=== PATIENT | male | born 1975 | race Caucasian/White ===

== ENCOUNTER 2017-01-17 16:25 | Inpatient (IN) | payer MEDICAID ==
[2017-01-17] MEDS ORDERED: MORPHINE SULFATE 10 MG/ML INJ IV ONE ×2 (16:43→19:31)
[2017-01-17] MEDS ORDERED: ONDANSETRON HCL INJ/PF 4 MG/2 ML SDV IV ONE (16:44)
--- NOTE | 2017-01-17 16:48 | ER Document Report ---
ED General - General Chief Complaint: Abdominal Pain Stated Complaint: ABDOMINAL PAIN Time Seen by Provider: 01/17/17 16:32 Mode of Arrival: Medic Information source: Patient, [facility] Records Notes: This is a 41-year-old male with a history of AK and chronic O2 dependent (5 L nasal cannula) who presents for evaluation of abdominal pain. He is wheelchair dependent at home. Patient states that he has had right-sided abdominal pain which has been worsening for the past 4 days. His pain is specifically located in the right lower quadrant. He denies any flank or back pain. He has had no nausea or vomiting. His last oral intake was about 1230 today and was a tomato sandwich which he tolerated with no difficulty. His last bowel movement was about 2 hours ago and was normal per his report. He denies any fevers or chills. He denies any dysuria or hematuria. This pain has been going on for 4 days but became severe earlier today. TRAVEL OUTSIDE OF THE [place] IN LAST 30 DAYS: No - Related Data Allergies/Adverse Reactions: No Known Allergies Allergy (Verified 01/19/15 16:03) Past Medical History - General Information source: Patient - Social History Smoking Status: Current Every Day Smoker Frequency of alcohol use: None Drug Abuse: None Lives with: Family Family History: CAD - Past Medical History Cardiac Medical History: Reports: Hx Heart Attack - x 2 Pulmonary Medical History: Reports: Hx Sleep Apnea Other: "lung problem" requiring O2 5L NC but patient unable to be more specific Past Surgical History: Reports: Hx Cardiac Surgery - stent, Hx Cholecystectomy, Hx Coronary Stent - Immunizations Hx Diphtheria, Pertussis, Tetanus Vaccination: No Review of Systems - Review of Systems Constitutional: No symptoms reported. denies: Chills, Fever, Recent illness EENT: No symptoms reported Cardiovascular: No symptoms reported. denies: Chest pain, Palpitations Respiratory: No symptoms reported Gastrointestinal: See HPI Genitourinary: No symptoms reported, See HPI. denies: Dysuria, Hematuria Musculoskeletal: No symptoms reported Skin: No symptoms reported Hematologic/Lymphatic: No symptoms reported Neurological/Psychological: No symptoms reported Physical Exam - Vital signs Vitals: Temp Pulse Resp BP Pulse Ox 98.5 F 85 28 H 111/79 96 01/17/17 16:33 01/17/17 16:33 01/17/17 16:33 01/17/17 16:33 01/17/17 16:33 - Notes Notes: PHYSICAL EXAMINATION: GENERAL: Well-appearing, obese adult male, pleasant and conversant and in mild distress secondary to abdominal pain. HEAD: Atraumatic, normocephalic. EYES: Pupils equal round and reactive to light, extraocular movements intact, sclera anicteric, conjunctiva are normal. ENT: nares patent, oropharynx clear without exudates. Moist mucous membranes. NECK: Normal range of motion, supple without lymphadenopathy LUNGS: Breath sounds clear to auscultation bilaterally and equal. No wheezes rales or rhonchi. HEART: Regular rate and rhythm without murmurs ABDOMEN: Soft, morbidly obese, normoactive bowel sounds. Significant TTP R side of abdomen (RLQ and RUQ) and suprapubic area with rebound tenderness, mild vol guarding. : No scrotal swelling/discoloration. No testicular TTP or masses. No hernia palpated. EXTREMITIES: Normal range of motion NEUROLOGICAL: Cranial nerves grossly intact. Normal speech. No gross focal motor or sensory deficits appreciated PSYCH: Normal mood, normal affect. SKIN: Warm, Dry, normal turgor, no rashes or lesions noted. Course - Re-evaluation Re-evalutation: 01/17/17 21:29 CT reveals evidence of appendicitis. Discussed case with surgeon, Dr. Zhou , who will admit patient to OR - Vital Signs Vital signs: Temp Pulse Resp BP Pulse Ox 98.5 F 85 28 H 111/79 96 01/17/17 16:33 01/17/17 16:33 01/17/17 16:33 01/17/17 16:33 01/17/17 16:33 - Laboratory Result Diagrams: 01/17/17 17:45 01/17/17 20:07 Laboratory results interpreted by me: 01/17/17 01/17/17 01/17/17 17:30 17:45 20:07 WBC 11.8 H RDW 15.6 H Glucose 279 H Direct Bilirubin 0.6 H AST 66 H Alkaline Phosphatase 160 H Urine Protein 100 H Urine Glucose (UA) >=500 H Urine Blood SMALL H - Diagnostic Test Radiology reviewed: Reports reviewed - CT abd pelvis: dilated fluid filled appendix with signs of inflammation concerning for appendicitis Discharge - Discharge Condition: Fair Disposition: ADMITTED INPATIENT Admitting Provider: Surgicalist - Dr. Zhou Unit Admitted: Surgical Floor
[2017-01-17 18:19] LABS: ABSOLUTE BASOPHILS # (AUTO) 0.1 10^3/uL (0.0-0.2); ABSOLUTE EOSINOPHILS # (AUTO) 0.1 10^3/uL (0.0-0.6); ABSOLUTE LYMPHOCYTES (AUTO) 4.2 10^3/uL (0.5-4.7); ABSOLUTE MONOCYTES (AUTO) 0.6 10^3/uL (0.1-1.4); ABSOLUTE NEUT (AUTO) 6.7 10^3/uL (1.7-8.2); BASOPHILS % (AUTO) 0.7 % (0-2); EOSINOPHILS % (AUTO) 1.2 % (0-6); HEMATOCRIT 46.6 % (37.9-51.0); HEMOGLOBIN 15.1 g/dL (13.5-17.0); HGB HCT DIFFERENCE -1.3; MEAN CORPUSCULAR HEMOGLOBIN 29.2 pg (27.0-33.4); MEAN CORPUSCULAR HGB CONC 32.4 g/dL (32.0-36.0); MEAN CORPUSCULAR VOLUME 90 fl (80-97); MONOCYTES % (AUTO) 5.1 % (3-13); RED BLOOD COUNT 5.16 10^6/uL (4.35-5.55); RED CELL DISTRIBUTION WIDTH 15.6 % (11.5-14.0); WHITE BLOOD COUNT 11.8 10^3/uL (4.0-10.5)
[2017-01-17 18:26] LABS: APPEARANCE,URINE CLEAR; BILIRUBIN,URINE NEGATIVE (NEGATIVE); GLUCOSE, URINE >=500 mg/dL (NEGATIVE); KETONES,URINE NEGATIVE (NEGATIVE); LEUKOCYTE ESTERASE,URINE NEGATIVE (NEGATIVE); NITRITE,URINE NEGATIVE (NEGATIVE); PROTEIN,URINE 100 mg/dL (NEGATIVE); URINE SPECIFIC GRAVITY 1.036; UROBILINOGEN,URINE NEGATIVE mg/dL (<2.0)
[2017-01-17 20:27] LABS: ALANINE AMINOTRANSFERASE 38 U/L (21-72); ALBUMIN 3.5 g/dL (3.5-5.0); ALKALINE PHOSPHATASE 160 U/L (38-126); ANION GAP 9 (5-19); ASPARTATE AMINO TRANSFERASE 66 U/L (17-59); BILIRUBIN,DIRECT 0.6 mg/dL (0.0-0.4); BILIRUBIN,TOTAL 1.2 mg/dL (0.2-1.3); BLOOD UREA NITROGEN 14 mg/dL (7-20); CALCIUM 8.9 mg/dL (8.4-10.2); CARBON DIOXIDE 24 mmol/L (22-30); CHLORIDE 105 mmol/L (98-107); GLUCOSE 279 mg/dL (75-110); LIPASE 72.2 U/L (23-300); POTASSIUM 4.5 mmol/L (3.6-5.0); SODIUM 137.7 mmol/L (137-145); TOTAL PROTEIN 7.2 g/dL (6.3-8.2)
[2017-01-17] MEDS ORDERED: HYDROMORPHONE HCL INJ/PF 2 MG/ML AMPULE IV ONE (20:39)
[2017-01-17] MEDS ORDERED: CEFOXITIN 1 GM/D5W RTU 50 ML IV ONE (20:48)
--- NOTE | 2017-01-17 21:18 | RADIOLOGY REPORT (SQ) ---
EXAM DESCRIPTION: CT ABD/PELVIS NO ORAL OR IV COMPLETED DATE/TIME: 01/17/2017 8:42 pm REASON FOR STUDY: right abdominal pain COMPARISON: January 2015 TECHNIQUE: CT scan of the abdomen and pelvis performed without intravenous or oral contrast. Images reviewed with lung, soft tissue, and bone windows. Reconstructed coronal and sagittal MPR images revi ewed. All images stored on PACS. All CT scanners at this facility use dose modulation, iterative reconstruction, and/or weight based d osing when appropriate to reduce radiation dose to as low as reasonably achievable (ALARA). [facility]: Dose Right [facility]: CareDose [facility]: Dose Right [facility]: Teradose 4D [facility]: [employer] RADIATION DOSE: 19.42mGy. LIMITATIONS: Study is limited due to the patient's body habitus. FINDINGS: LOWER CHEST: No significant findings. No nodules or infiltrates. NON-CONTRASTED LIVER, SPLEEN, ADRENALS: Evaluation limited by lack of IV contrast. No identified sign ificant masses. There is diffuse relative low density in the liver suggesting fatty infiltration. PANCREAS: No masses. No peripancreatic inflammatory changes. GALLBLADDER: Status post cholecystectomy. RIGHT KIDNEY AND URETER: No suspicious masses. Assessment limited by lack of IV contrast. No signif icant calcifications. No hydronephrosis or hydroureter. LEFT KIDNEY AND URETER: No suspicious masses. Assessment limited by lack of IV contrast. No signifi cant calcifications. No hydronephrosis or hydroureter. AORTA AND RETROPERITONEUM: No aneurysm. No retroperitoneal masses or adenopathy. BOWEL AND PERITONEAL CAVITY: No obvious masses or inflammatory changes. No free fluid. APPENDIX: A fluid distended by appendix is identified with edematous or inflammatory changes in the a djacent mesenteric fat suspicious for appendicitis. PELVIS, BLADDER, AND ABDOMINAL WALL:No abnormal masses. No free fluid. Bladder normal. BONES: No significant findings. OTHER: No other significant finding. IMPRESSION: Findings suspicious for appendicitis as noted above. Clinical correlation is recommende d. Other findings as noted above TECHNICAL DOCUMENTATION: JOB ID: [id number] Quality ID # [id number]: Final reports with documentation of one or more dose reduction techniques (e.g., Au tomated exposure control, adjustment of the mA and/or kV according to patient size, use of iterative reconstruction technique) 2010 [employer]- All Rights Reserved
[2017-01-17] MEDS ORDERED: NORMAL SALINE 1000 ML 1,000 ML IV ONE (21:29)
[2017-01-17] MEDS ORDERED: ERTAPENEM SODIUM INJ 1 GM VIAL IV ONE (21:47)
--- NOTE | 2017-01-17 22:16 | PDOC H&P ---
History of Present Illness Admission Date/PCP: 01/17/17 21:57 Patient complains of: Abdominal pain 6 days History of Present Illness: JC ORANTES is a 41 year old male who was brought to [facility] emergency department via ground rescue complaining 6 day history of abdominal pain. This started the right lower quadrant, and the patient felt he had gas. The pain persisted unrelenting over the next several days. He thought he had to have a bowel movement so he took Ex-Lax with no improvement in his pain. He continued to eat and have bowel movements as recently as this evening. His last meal was 1230, sandwich. Patient has had no nausea vomiting , history of trauma, or previous symptoms. Patient was put on over 120 pounds in the last 3 years. He is medically disabled due to his weight, and cardio inspiratory dysfunction. Patient was evaluated in the emergency department found to have right lower quadrant tenderness and leukocytosis. CT scan of the abdomen and pelvis was performed without IV and oral contrast which showed findings consistent with acute appendicitis. Surgery was consulted the patient was advised admission, and definitive surgical intervention. Past Medical History Cardiac Medical History: Reports: Myocardial Infarction - x 2 Pulmonary Medical History: Reports: Sleep Apnea Renal/ History Note: Acute renal failure, recovered; history of lower extremity edema GI History Note: With obesity; history of laparoscopic cholecystectomy 3 years ago Past Surgical History Past Surgical History: Reports: Cholecystectomy, Coronary Stent - 20 years ago. History of myocardial infarction. Social History Lives with: Family Smoking Status: Current Every Day Smoker Hx Recreational Drug Use: No Past Social History Note: Used to smoke 60 cigarettes a day now cut down to 3 a day by his report. He is on home oxygen and CPAP. He ambulates from bed to chair. He has a wheelchair. He has chronic shortness of breath, and pain in his legs. He reports noncompliance with medications but is taking narcotics for musculoskeletal pain. - Advance Directive Resuscitation Status: Full Code Family History Family History: CAD Parental Family History Reviewed: Yes Children Family History Reviewed: Yes Sibling(s) Family History Reviewed.: Yes Medication/Allergy Home Medications: Cyclobenzaprine HCl [Flexeril 10 mg Tablet] 10 mg PO TIDP PRN #15 tab 15 Oxycodone HCl/Acetaminophen [Percocet 5-325 mg Tablet] 1 - 2 tab PO ASDIR PRN # 15 tablet 05/30/15 Sulfamethoxazole/Trimethoprim [Bactrim Ds Tablet] 1 each PO BID #10 tablet 01/19 Allergies/Adverse Reactions: No Known Allergies Allergy (Verified 01/19/15 16:03) Review of Systems Constitutional: PRESENT: fatigue, weakness Eyes: ABSENT: visual disturbances Ears: ABSENT: hearing changes Respiratory: PRESENT: dyspnea, other - Chronic shortness of breath. Psychiatric: ABSENT: anxiety, depression, homidical ideation, suicidal ideation Endocrine: PRESENT: other - States he has never been told he has diabetes. Physical Exam Vital Signs: Temp Pulse Resp BP Pulse Ox 98.5 F 85 28 H 111/79 96 01/17/17 16:33 01/17/17 16:33 01/17/17 16:33 01/17/17 16:33 01/17/17 16:33 General appearance: PRESENT: disheveled, mild distress Head exam: PRESENT: normocephalic Eye exam: PRESENT: EOMI Ear exam: PRESENT: normal external ear exam Teeth exam: PRESENT: poor dentation Neck exam: PRESENT: full ROM Respiratory exam: PRESENT: rhonchi Cardiovascular exam: PRESENT: RRR Pulses: PRESENT: normal carotid pulses GI/Abdominal exam: PRESENT: other - Distended. Scars consistent with previous surgery. Tender right lower quadrant with guarding. Abdominal wall Rectal exam: PRESENT: deferred Extremities exam: PRESENT: +2 edema Musculoskeletal exam: PRESENT: full ROM Neurological exam: PRESENT: alert, awake, oriented to person, oriented to place Psychiatric exam: PRESENT: agitated Results Impressions: Abdomen/Pelvis CT 01/17/17 19:56 IMPRESSION: Findings suspicious for appendicitis as noted above. Clinical correlation is recommended. Other findings as noted above Status: Image reviewed by dc - CT scan limited by absence of IV and oral contrast. Also significant scatter artifact. There appears to be a inflammatory process in the right mid to lower quadrant adjacent to the cecum. Assessment & Plan - Diagnosis (1) Appendicitis, acute Is this a current diagnosis for this admission?: YesPlan: 1. Patient needs admission to the surgical service, kept n.p.o., fluid resuscitated, given intravenous antibiotics and taken to the operating room for interval laparoscopic, possible open appendectomy. 2. Patient's risk of cardio respiratory complications postoperatively is significant. However patient is in need of emergent surgical intervention, and understands it is in his best interest to proceed. He may require postoperative ventilatory support. 3.Patient unaware of diagnosis of diabetes mellitus. We will fluid resuscitate and provide insulin as indicated. (2) Smoker in home Is this a current diagnosis for this admission?: Yes (3) Morbid obesity Is this a current diagnosis for this admission?: Yes (4) COPD (chronic obstructive pulmonary disease) Is this a current diagnosis for this admission?: Yes (5) CAD (coronary artery disease) Is this a current diagnosis for this admission?: Yes (6) Diabetes Qualifiers: Diabetes mellitus type: type 2 Diabetes mellitus complication status: with hyperglycemia Is this a current diagnosis for this admission?: Yes - Time Time Spent: 50 to 70 Minutes Critical Time spent with patient: 15-24 minutes Medications reviewed and adjusted accordingly: Yes Anticipated discharge: Home - Inpatient Certification Based on my medical assessment, after consideration of the patient's comorbidities, presenting symptoms, or acuity I expect that the services needed warrant INPATIENT care.: Yes I certify that my determination is in accordance with my understanding of Medicare's requirements for reasonable and necessary INPATIENT services [42 CFR 412.3e].: Yes Medical Necessity: Need For IV Fluids, Need for Pain Control, Need for IV Antibiotics, Need for Surgery
[2017-01-17] MEDS ORDERED: FENTANYL CITRATE INJ/PF 100 MCG/2 ML AMPUL ONE ×2 (22:27)
[2017-01-17] MEDS ORDERED: PROPOFOL INJ 200 MG/20 ML VIAL IV ONE ×2 (22:27→23:43)
[2017-01-17] MEDS ORDERED: ACETAMINOPHEN 100 ML IV ONE (22:27)
[2017-01-17] MEDS ORDERED: MIDAZOLAM 2 MG/2 ML INJ ONE (22:27)
[2017-01-17] MEDS ORDERED: LIDOCAINE 1%/EPINEPHRINE INJ 20 ML VIAL ONE (22:51)
[2017-01-17] MEDS ORDERED: LIDOCAINE 1%/EPINEPHRINE INJ 20 ML VIAL INJ ONE (23:36)
[2017-01-17] MEDS ORDERED: PROMETHAZINE HCL INJ 25 MG/1 ML VIAL IV PRN (23:43)
[2017-01-17] MEDS ORDERED: DIPHENHYDRAMINE HCL 50 MG/ML VIAL IV PRN (23:43)
[2017-01-17] MEDS ORDERED: FENTANYL CITRATE INJ/PF 100 MCG/2 ML AMPUL IV PRN ×2 (23:43)
[2017-01-18] MEDS ORDERED: ONDANSETRON HCL INJ/PF 4 MG/2 ML SDV IV PRN (00:16)
--- NOTE | 2017-01-18 00:27 | Operative Report ---
Operative Report DATE OF SURGERY: 01/18/17 PREOPERATIVE DIAGNOSIS: Acute appendicitis POSTOPERATIVE DIAGNOSIS: Same with separative appendicitis with phlegmon OPERATION: 1. Laparoscopic appendectomy. 2. Drainage of right lower quadrant. 3. Extremely difficult modifier SURGEON: MARILYN ALLEN ANESTHESIA: GA TISSUE REMOVED OR ALTERED: Appendix and fragments COMPLICATIONS: None ESTIMATED BLOOD LOSS: 50 cc INTRAOPERATIVE FINDINGS: See below PROCEDURE: Patient was seen initially in the emergency department, then transferred to the holding area and taken to the main operating room where general anesthesia was induced uneventfully. The abdomen was exposed, Randhawa catheter inserted uneventfully, and the abdomen prepped and draped in sterile fashion. Of note the patient was morbidly obese, with chronic obstructive lung disease. Nonetheless all events during induction throughout the case and at its conclusion proceeded uneventfully. Surgical plan surgical timeout conducted. Skin was anesthetized with quarter percent Marcaine. Supraumbilical vertical incision made benign Veress needle inserted in peritoneal cavity and pneumoperitoneum was established. The Veress needle was removed and a 5 mm port was inserted and flexible 5 mm scope was inserted. We level the patient placed a suprapubic port in position and then placed a left lower quadrant 12 mm port at the position, all performed under direct visualization without injury to the viscera. Findings are significant for multiple loops of small bowel adhesions down to the right lower quadrant. We are able to milk most of the bowel out of the right lower quadrant. The terminal ileum was affixed to the phlegmon. We placed a fourth port in the right lower quadrant and use that for retraction. Using a combination of blunt, and suction dissection, we were able to bluntly dissected the ileum off of the appendix. Once we broke into this plane, approximately 10 cc of pus was expressed. The findings are consistent with acute suppurative appendicitis with phlegmon, but no gross fecal contamination. We kept working from multiple angles bluntly dissecting the surrounding loop of bowel terminal ileum away from the appendix. Small portion of the cecal attachment to the inferior peritoneal reflection was opened with the LigaSure device. We continue to work in a methodical fashion until we had the appendix in a chopped up almost fragmented fashion suspended from the cecum. Multiple photos were taken. We continue to take the level of dissection right down to the shoulder of the appendix as it was tapering into the musculature of the cecum. Again photos were taken. At this point we felt it was safe to transect the appendix at its base. We used a a single firing, blue load, of the Ethicon stapler 45 mm. The appendix was now in a fragmented form and placed into an Endobag and brought to the patient through the left lower quadrant port site incision with some stretching of the fascia and skin. We irrigated the right lower quadrant out in a localized fashion. A abbreviated , trimmed Al[place]-Rockwell drain was placed into the right lower quadrant through 1 of the port site incisions. He was secured to the skin with 2-0 Prolene suture. The staple line was inspected and it was felt to be in excellent condition. There was never any leakage of stool. We felt the operation was complete. Sponge counts were correct. All ports removed under direct visualization pneumoperitoneum evacuated was closed with 2-0 Vicryl 3-0 Vicryl benzoin and Steri-Strips. The drain was hooked to bulb suction. The patient tolerated the procedure well, extubated taken to recovery in stable condition felt to be unchanged ulcer
[2017-01-18] MEDS ORDERED: DEXTROSE 40% GEL 15 GM TUBE PO PRN ×3 (00:37→10:55)
[2017-01-18] MEDS ORDERED: GLUCAGON,HUMAN RECOMB 1 MG INJ IM PRN ×2 (00:37→10:55)
[2017-01-18] MEDS ORDERED: DEXTROSE 50%-WATER 25 GM/50 ML DISP.SYRIN IV PRN ×2 (00:37)
[2017-01-18] MEDS ORDERED: KETOROLAC TROMETHAMINE 60 MG/2 ML SDV IM PRN (00:40)
[2017-01-18] MEDS: MORPHINE SULFATE 10 MG/ML INJ IV PRN ×6 (01:12→22:25)
[2017-01-18] MEDS ORDERED: KETOROLAC TROMETHAMINE INJ/PF 30 MG/1 ML SDV ONE (03:58)
[2017-01-18] MEDS: NORMAL SALINE 1000 ML 1,000 ML IV PRN ×3 (05:18→21:41)
[2017-01-18] MEDS: INSULIN REG, HUMAN 100 UNIT/ML 3 ML VIAL (PYX) SUBCUT PRN ×2 (06:37→08:33)
[2017-01-18] MEDS: CEFOXITIN 1 GM/D5W RTU 1 GM/50 ML RTUPB IV SCH ×2 (09:07→21:41)
[2017-01-18] MEDS ORDERED: DEXTROSE 50%-WATER SYRINGE 12.5 GM/25 ML DOSE IV PRN (10:55)
[2017-01-18] MEDS ORDERED: DEXTROSE 50%-WATER SYRINGE 25 GM/50 ML DOSE IV PRN (10:55)
[2017-01-18] MEDS ORDERED: DEXTROSE 40% GEL 15 GM TUBE X 2 PO PRN (10:55)
[2017-01-18] MEDS: KETOROLAC TROMETHAMINE INJ/PF 30 MG/1 ML SDV IM PRN ×2 (10:59→19:43)
[2017-01-18] MEDS: INSULIN LISPRO 100 UNIT/ML 3 ML VIAL SUBCUT PRN ×4 (11:11→21:41)
[2017-01-18] MEDS ORDERED: SUCCINYLCHOLINE CHLORIDE INJ 200 MG/10 ML VIAL ONE (12:01)
[2017-01-18] MEDS ORDERED: GLYCOPYRROLATE INJ 0.4 MG/2 ML VIAL ONE (12:01)
[2017-01-18] MEDS ORDERED: ONDANSETRON HCL INJ/PF 4 MG/2 ML SDV ONE (12:01)
[2017-01-18] MEDS ORDERED: NEOSTIGMINE METHYLSULFATE 10 MG/10 ML VIAL ONE (12:01)
[2017-01-18] MEDS ORDERED: ROCURONIUM BROMIDE INJ 50 MG/5 ML VIAL IV ONE (12:01)
[2017-01-18] MEDS ORDERED: DEXAMETHASONE SOD PHOSPHATE INJ 4 MG/1 ML VIAL ONE (12:01)
[2017-01-18] MEDS ORDERED: LIDOCAINE 2% INJ-PF (20 MG/ML) 10 ML AMPUL ONE (12:01)
[2017-01-18] MEDS ORDERED: KETOROLAC TROMETHAMINE 60 MG/2 ML SDV ONE (12:01)
[2017-01-18] MEDS ORDERED: INSULIN LISPRO 100 UNIT/ML 3 ML VIAL SUBCUT ONE (12:30)
--- NOTE | 2017-01-18 13:25 | PDOC CONSULTATION ---
Consultation Consult Date: 01/18/17 Attending physician:: MARILYN ALLEN Consult reason:: Newly diagnosed diabetes, post op emergent appendectomy History of Present Illness Admission Date/PCP: 01/18/17 01:00 History of Present Illness: JC ORANTES is a 41 year old male who [facility] complaining 6 day history of abdominal pain. This started the right lower quadrant, and the patient felt he had gas. The pain persisted unrelenting over the next several days. He thought he had to have a bowel movement so he took Ex-Lax with no improvement in his pain. He continued to eat and have bowel movements as recently as this evening. His last meal was 1230, sandwich. Patient has had no nausea vomiting , history of trauma, or previous symptoms. Patient was put on over 120 pounds in the last 3 years. He is medically disabled due to his weight, and cardio pulmonary dysfunction. He reports AR with stent. He states he was told at [facility] this year that he has trouble with the blood vessels to his lung, and " there is nothing left that they can do for him " He wears CPAP at night and a good part of the day, or nasal cannula at 4l/min Patient was evaluated in the emergency department found to have right lower quadrant tenderness and leukocytosis. CT scan of the abdomen and pelvis was performed without IV and oral contrast which showed findings consistent with acute appendicitis. Surgery was consulted the patient was advised admission, and definitive surgical intervention. The patient has had high glucose readings since admission. He denies any history of diabetes, he was told by his family physician he was " borderline diabetic " 2 years ago. He states his parents young and he has no knowledge of any family members having diabetes. He denies polydypsia, or polyurea. Past Medical History Cardiac Medical History: Reports: Myocardial Infarction - x 2 Pulmonary Medical History: Reports: Chronic Obstructive Pulmonary Disease (COPD) , Sleep Apnea, Other - Pulmonary hypertension Neurological Medical History: Reports: None Endocrine Medical History: Reports: Obesity Renal/ Medical History: Reports: None Malignancy Medical History: Reports: None GI Medical History: Reports: None Musculoskeltal Medical History: Reports: None Skin Medical History: Reports: None Psychiatric Medical History: Reports: None Hematology: Reports: None Infectious Medical History: Reports: None Past Surgical History Past Surgical History: Reports: Cholecystectomy, Coronary Stent - 20 years ago. History of myocardial infarction. Social History Information Source: Patient Lives with: Family Smoking Status: Former Smoker Number of Years Smokin Frequency of Alcohol Use: None Hx Recreational Drug Use: No Drugs: None Hx Prescription Drug Abuse: No - Advance Directive Resuscitation Status: Full Code Surrogate healthcare decision maker:: should he become incapacitated Family History Family History: CAD Parental Family History Reviewed: Yes Children Family History Reviewed: Yes Sibling(s) Family History Reviewed.: Yes Medication/Allergy Home Medications: No Home Medications 01/18/17 Allergies/Adverse Reactions: No Known Allergies Allergy (Verified 01/19/15 16:03) Review of Systems Constitutional: PRESENT: weight gain Eyes: ABSENT: visual disturbances Ears: ABSENT: hearing changes Cardiovascular: PRESENT: dyspnea on exertion Respiratory: PRESENT: dyspnea Gastrointestinal: PRESENT: abdominal pain Genitourinary: ABSENT: dysuria, hematuria Musculoskeletal: ABSENT: joint swelling Integumentary: ABSENT: rash, wounds Neurological: ABSENT: abnormal gait, abnormal speech, confusion, dizziness, focal weakness, syncope Psychiatric: ABSENT: anxiety, depression, homidical ideation, suicidal ideation Endocrine: ABSENT: cold intolerance, heat intolerance, polydipsia, polyuria Hematologic/Lymphatic: ABSENT: easy bleeding, easy bruising Physical Exam Vital Signs: Temp Pulse Resp BP Pulse Ox 98.5 F 94 25 H 116/59 L 97 01/18/17 08:00 01/18/17 08:49 01/18/17 10:10 01/18/17 10:10 01/18/17 12:05 Pulse Oximeter Ambulatory Start: 01/18/17 00: 36 Freq: [id number] Status: Active Document 01/18/17 08:00 [facility] (Rec[facility] 01/18/17 09[facility]00 [id number] Exercise Oximetry Treatment Ambulating SpO2 Charge Now No Intake & Output 01/17/17 01/18/17 01/19/17 06:59 06:59 06:59 Intake Total 2195 240 Output Total 370 125 Balance 1825 115 Weight 198.1 kg General appearance: PRESENT: no acute distress, morbidly obese, well-developed Head exam: PRESENT: atraumatic, normocephalic Eye exam: PRESENT: conjunctiva pink, EOMI, PERRLA. ABSENT: scleral icterus Ear exam: PRESENT: normal external ear exam Mouth exam: PRESENT: moist, tongue midline Neck exam: ABSENT: carotid bruit, JVD, lymphadenopathy, thyromegaly Respiratory exam: PRESENT: clear to auscultation milagros. ABSENT: rales, rhonchi, wheezes Cardiovascular exam: PRESENT: RRR. ABSENT: diastolic murmur, rubs, systolic murmur GI/Abdominal exam: PRESENT: soft, tenderness. ABSENT: distended, guarding, mass , organolmegaly, rebound Rectal exam: PRESENT: deferred Extremities exam: PRESENT: full ROM. ABSENT: calf tenderness, clubbing, pedal edema Musculoskeletal exam: PRESENT: ambulatory, full ROM Neurological exam: PRESENT: alert, awake, oriented to person, oriented to place , oriented to time, oriented to situation, CN II-XII grossly intact. ABSENT: motor sensory deficit Psychiatric exam: PRESENT: appropriate affect, normal mood. ABSENT: homicidal ideation, suicidal ideation Skin exam: PRESENT: dry, intact, warm. ABSENT: cyanosis, rash Results Impressions: Abdomen/Pelvis CT 01/17/17 19:56 IMPRESSION: Findings suspicious for appendicitis as noted above. Clinical correlation is recommended. Other findings as noted above Assessment & Plan - Diagnosis (1) New onset type 2 diabetes mellitus Is this a current diagnosis for this admission?: YesPlan: Sliding scale insulin. Will start lantus weight based as he is just resuming diet post op day#1 after emergent appendectomy (2) Pulmonary hypertension Is this a current diagnosis for this admission?: YesPlan: CPAP at . Obtain records from [facility] (3) Appendicitis, acute Qualifiers: Acute appendicitis type: unspecified acute appendicitis type Qualified Code(s): K35.80 - Unspecified acute appendicitis Is this a current diagnosis for this admission?: YesPlan: Surgeons are managing (4) Morbid obesity Is this a current diagnosis for this admission?: YesPlan: Counseled on need for weight loss (5) CAD (coronary artery disease) Qualifiers: Coronary Disease-Associated Artery/Lesion type: [place] artery Is this a current diagnosis for this admission?: YesPlan: Patient takes no medications. He states he was told at [facility] "they could do nothing for his heart or lungs.." (6) COPD (chronic obstructive pulmonary disease) Is this a current diagnosis for this admission?: Yes - Time Time Spent: 50 to 70 Minutes Critical Time spent with patient: 25-34 minutes Medications reviewed and adjusted accordingly: Yes
--- NOTE | 2017-01-18 16:45 | PDOC PROGRESS REPORT ---
Subjective Progress Note for:: 01/18/17 Subjective:: Feeling better minimal pain tolerating po liquids Physical Exam Vital Signs: Temp Pulse Resp BP Pulse Ox 98.2 F 70 24 H 135/116 H 93 01/18/17 15:51 01/18/17 15:51 01/18/17 15:59 01/18/17 15:51 01/18/17 15:59 Pulse Oximeter Ambulatory Start: 01/18/17 00: 36 Freq: [id number] Status: Cancelled Document 01/18/17 08:00 LDA (Rec: 01/18/17 09:00 LDA [id number]) Exercise Oximetry Treatment Ambulating SpO2 Charge Now No Intake & Output 01/17/17 01/18/17 01/19/17 06:59 06:59 06:59 Intake Total 2195 240 Output Total 370 695 Balance 1825 -455 Weight 198.1 kg GI/Abdominal exam: PRESENT: other - Abdomen soft non tender ANTONETTE drain - serous Results Impressions: Abdomen/Pelvis CT 01/17/17 19:56 IMPRESSION: Findings suspicious for appendicitis as noted above. Clinical correlation is recommended. Other findings as noted above Assessment & Plan - Plan Summary Plan Summary: S/P appendectomy Recovering well Advance diet Ambulte
--- NOTE | 2017-01-18 21:10 | EKG REPORT ---
SEVERITY:- NORMAL ECG - SINUS RHYTHM : Confirmed by: oZhreh Cid 18-Jan-2017 21:09:58
[2017-01-18] MEDS ORDERED: INSULIN GLARGINE,HUM.REC.ANLOG 300 UNIT/3 ML INSULN.PEN SUBCUT SCH ×3 (22:00)
[2017-01-19] MEDS: MORPHINE SULFATE 10 MG/ML INJ IV PRN ×5 (02:35→21:15)
[2017-01-19 06:22] LABS: HGB HCT DIFFERENCE -0.9; MEAN CORPUSCULAR HEMOGLOBIN 29.3 pg (27.0-33.4); MEAN CORPUSCULAR HGB CONC 32.5 g/dL (32.0-36.0); MEAN CORPUSCULAR VOLUME 90 fl (80-97); RED BLOOD COUNT 4.33 10^6/uL (4.35-5.55); RED CELL DISTRIBUTION WIDTH 15.8 % (11.5-14.0); WHITE BLOOD COUNT 10.3 10^3/uL (4.0-10.5)
[2017-01-19 06:26] LABS: HEMOGLOBIN 12.7 g/dL (13.5-17.0)
[2017-01-19 06:34] LABS: ANION GAP 9 (5-19); BLOOD UREA NITROGEN 20 mg/dL (7-20); CALCIUM 8.8 mg/dL (8.4-10.2); CARBON DIOXIDE 22 mmol/L (22-30); CHLORIDE 104 mmol/L (98-107); GLUCOSE 332 mg/dL (75-110); POTASSIUM 5.1 mmol/L (3.6-5.0); SODIUM 135.1 mmol/L (137-145)
[2017-01-19] MEDS: KETOROLAC TROMETHAMINE INJ/PF 30 MG/1 ML SDV IM PRN ×2 (08:22→16:48)
[2017-01-19] MEDS: INSULIN LISPRO 100 UNIT/ML 3 ML VIAL SUBCUT PRN ×4 (08:23→23:03)
[2017-01-19] MEDS ORDERED: METFORMIN HCL 500 MG TABLET PO ONE ×2 (08:30→09:00)
[2017-01-19] MEDS ORDERED: FUROSEMIDE INJ/PF 40 MG/4 ML SDV IV ONE (08:30)
[2017-01-19] MEDS: INSULIN GLARGINE,HUM.REC.ANLOG 300 UNIT/3 ML INSULN.PEN SUBCUT SCH ×2 (09:39→23:03)
[2017-01-19] MEDS: CEFOXITIN 1 GM/D5W RTU 1 GM/50 ML RTUPB IV SCH ×2 (09:39→21:15)
--- NOTE | 2017-01-19 09:41 | PDOC PROGRESS REPORT ---
Subjective Progress Note for:: 01/19/17 Subjective:: Feels okay tolerating diet well. Physical Exam Vital Signs: Temp Pulse Resp BP Pulse Ox 99.3 F 54 L 22 H 119/65 94 01/19/17 08:00 01/19/17 08:00 01/19/17 08:22 01/19/17 08:00 01/19/17 08:23 Pulse Oximeter Ambulatory Start: 01/18/17 00: 36 Freq: [id number] Status: Cancelled Document 01/18/17 08:00 LDA (Rec: 01/18/17 09:00 LDA [id number]) Exercise Oximetry Treatment Ambulating SpO2 Charge Now No Intake & Output 01/18/17 01/19/17 01/20/17 06:59 06:59 06:59 Intake Total 2195 4101 Output Total 370 1935 Balance 1825 2166 Weight 198.1 kg 202.3 kg General appearance: PRESENT: no acute distress, cooperative Respiratory exam: PRESENT: clear to auscultation milagros Cardiovascular exam: PRESENT: RRR GI/Abdominal exam: PRESENT: other - Soft, morbidly obese, difficult to tell whether is distended. Mild lower abdominal diffuse tenderness without peritoneal signs. Drain output slightly cloudy. Results Laboratory Results: 01/19/17 05:57 01/19/17 05:57 01/19/17 01/19/17 05:57 05:57 WBC 10.3 RBC 4.33 L Hgb 12.7 L D Hct 39.0 MCV 90 MCH 29.3 MCHC 32.5 RDW 15.8 H Plt Count 175 Sodium 135.1 L Potassium 5.1 H Chloride 104 Carbon Dioxide 22 Anion Gap 9 BUN 20 Creatinine 0.80 Est GFR ( Amer) > 60 Est GFR (Non-Af Amer) > 60 Glucose 332 H Calcium 8.8 Impressions: Abdomen/Pelvis CT 01/17/17 19:56 IMPRESSION: Findings suspicious for appendicitis as noted above. Clinical correlation is recommended. Other findings as noted above Assessment & Plan - Diagnosis (1) Appendicitis, acute Qualifiers: Acute appendicitis type: unspecified acute appendicitis type Qualified Code(s): K35.80 - Unspecified acute appendicitis Is this a current diagnosis for this admission?: YesPlan: Status post appendectomy. Patient's glucose still poorly controlled. Still not ambulating well. Will discharge patient home when sugar better controlled and patient's ambulation status is good.
--- NOTE | 2017-01-19 10:05 | PROGRESS NOTE E ---
Progress Note NAME: JC ORANTES : 1975 AGE: 41Y DATE: 01/19/2017 ROOM: 324 SUBJECTIVE: The patient is lying in bed. He states that he is in more pain than he was yesterday. The patient refused to have a Randhawa placed and it does not appear that he has gotten out of bed yet today either. The patient denies any nausea or vomiting. No diarrhea, dizziness, or chest pain. He states his shortness of breath is at its baseline. The patient does not voice any other concerns at this time. I reviewed the patient's records from [facility]. It appears that the patient was discharged in February 2016. At that time, the patient was to follow up to have a right-sided heart catheterization with Skylar Rhodes MD; however, the patient states that he has not followed up to do this. The patient was also discharged on significant diuretic therapy; however, he has not continued this at home. The patient was also noted that he was prediabetic at that time and was recommended to be on metformin; however the patient is not taking that either, nor is he taking his beta sylvie. The patient has been afebrile overnight. His blood pressures have been in a good range. The patient does not voice any other concerns at this time. REVIEW OF SYSTEMS: The rest of review of systems is negative. MEDICATIONS: Medications have been reviewed. OBJECTIVE: GENERAL: The patient is a 41-year-old male, who is awake, alert and oriented to person, place, time and situation. He is verbal, conversational, ambulatory and does not appear to be in acute distress. VITAL SIGNS: As follows: Temperature 97.6, pulse 68, respirations 17, blood pressure is 116/74, oxygen saturation is 99% on 4L nasal cannula. SKIN: Warm and dry. No rash. Not diaphoretic. HEENT: Pupils are equal, round and reactive to light and accommodation. Conjunctivae are pink. There is no JVD. CARDIOVASCULAR SYSTEM: Heart is regular. There is no murmur or rub. CHEST: Clear, symmetrical and unlabored. ABDOMEN: Obese, unable to palpate for organomegaly. Postsurgical. EXTREMITIES: No clubbing or cyanosis. The patient does have chronic changes of insufficiency as well as evidence of chronic edema with skin thickening. PSYCHIATRIC: Appropriate affect, pleasant mood. DIAGNOSTICS: 1. Laboratory values are as follows: a. Hematology obtained on 01/19/2017: WBCs 10.3, hemoglobin 12.7, hematocrit 39.0, platelet count 175,000. b. Chemistry obtained on 01/17/2017: Sodium 137, potassium 4.5, chloride 105, carbon dioxide 24, BUN 14, creatinine 0.70, glucose 279, calcium is 8.8. c. Blood cultures obtained on 01/17/2017 revealed no growth. IMPRESSION AND PLAN: 1. DIABETES MELLITUS TYPE 2 AND OBESE. Will add metformin at a lower dose. Hopefully, the patient can tolerate this. Will continue Lantus as well as sliding scale coverage and follow. 2. PULMONARY HYPERTENSION. The patient does need to need to follow up with Skylar Rhodes MD in [facility] for right-sided heart catheterization. That way, further workup and management of this can be done. 3. SUPERMORBID OBESITY WITH A BMI OF 60. Of course, we will encourage weight reduction. Hopefully, with glycemic control as well as metformin, this will improve. Most likely, the patient has a component of hypoventilation syndrome as well. 4. OBSTRUCTIVE SLEEP APNEA. Will continue positive pressures. 5. CHRONIC SYSTOLIC CONGESTIVE HEART FAILURE. The patient had an echo done on 03/15/2016 that showed an EF of 35% to 40%. The patient after that underwent a PET myocardial scan which showed an EF of 49%, which most likely more graphic art sales representative of true contractility. Will encourage the patient to comply with medications. Will resume diuretic therapy, but will hold off on beta sylvie right now given the patient's heart rate of 58. Will follow. 6. CHRONIC HYPOXEMIC RESPIRATORY FAILURE. Will continue supportive measures with a goal of oxygen saturation of 88% to 92%. 7. POSSIBLE CORONARY ARTERY DISEASE. Upon review of the patient's records from [facility] including dedicated CTA, the patient appears to have clean coronary arteries. The patient has stated in records that he was stented 20 years ago in [place], [place]; however, gender studies professor services has not been available at that facility at the time and there is once again, no evidence of CAD on imaging. The patient also has not been on any antiplatelet therapy. But given the patient's risk factors, am going to start the patient on baby aspirin. 8. DVT PROPHYLAXIS. As per surgery. DISPOSITION: The patient is a FULL CODE. Pending patient's symptomatology and diagnostic findings, will re-evaluate as needed. The patient is okay for discharge from a medical perspective with followup. TIME SPENT: Time spent on this follow up including assessment, plan, physical examination, patient education and extensive review of previous records was 35 minutes. DICTATING PHYSICIAN: RYAN WILSON NP [id number] PHY#: [id number] ID: [id number] JOB#: [id number] ACCT: [id number] cc: >
[2017-01-19] MEDS ORDERED: METFORMIN HCL 500 MG TABLET PO SCH (16:00)
[2017-01-19] MEDS: METFORMIN HCL 500 MG TABLET PO SCH (16:49)
[2017-01-19] MEDS: ONDANSETRON HCL INJ/PF 4 MG/2 ML SDV IV PRN (23:15)
[2017-01-20] MEDS: KETOROLAC TROMETHAMINE INJ/PF 30 MG/1 ML SDV IM PRN ×3 (00:19→16:00)
[2017-01-20] MEDS: MORPHINE SULFATE 10 MG/ML INJ IV PRN ×4 (06:35→21:06)
[2017-01-20 06:43] LABS: ANION GAP 13 (5-19); BLOOD UREA NITROGEN 25 mg/dL (7-20); CALCIUM 9.3 mg/dL (8.4-10.2); CARBON DIOXIDE 22 mmol/L (22-30); CHLORIDE 103 mmol/L (98-107); CREATININE RESULT 0.82 mg/dL (0.52-1.25); GLUCOSE 236 mg/dL (75-110); POTASSIUM 4.5 mmol/L (3.6-5.0); SODIUM 138.1 mmol/L (137-145)
[2017-01-20] MEDS: INSULIN LISPRO 100 UNIT/ML 3 ML VIAL SUBCUT PRN ×2 (08:10→12:36)
[2017-01-20] MEDS: METFORMIN HCL 500 MG TABLET PO SCH ×2 (08:10→16:29)
--- NOTE | 2017-01-20 08:21 | PROGRESS NOTE E ---
Progress Note NAME: JC ORANTES : 1975 AGE: 41Y DATE: 01/20/2017 ROOM: 324 SUBJECTIVE: The patient is lying in bed. He was sleeping when I entered the room; however, the patient was easily awakened. The patient's blood glucose has improved slightly; however, I have explained to the patient this does need some time for curve adjustment and the patient has agreed to follow up with his primary care provider regarding this. I have sent prescriptions however for insulin, aspirin, metformin, and Bumex to the patient's pharmacy. The patient is highly encouraged to follow up with [facility] with Dr. Skylar Rhodes. The patient's vital signs are otherwise in a good range. The patient does not voice any concerns at this time. REVIEW OF SYSTEMS: Rest of review of systems negative. MEDICATIONS: Medications have been reviewed. OBJECTIVE: GENERAL: The patient is a 41-year-old male who is awake and alert. He is oriented to person, place, time, and situation. He is verbal, conversational, and does not appear to be in any acute distress. VITAL SIGNS: As follows: Temperature is 97.9, pulse 67, respirations 16, blood pressure 123/73, oxygen saturation is 97%. SKIN: Warm and dry. No rashes. He is not diaphoretic. HEENT: Pupils equal, round and reactive to light and accommodation. Conjunctivae are pink. There is no JVD. CARDIOVASCULAR: Heart is regular. There is no murmur or rub. CHEST: Clear, symmetrical, unlabored. ABDOMEN: Obese, postoperative. BACK: No CVA tenderness or sacral edema. EXTREMITIES: No clubbing, cyanosis or edema. Evidence of chronic insufficiency with skin thickening, suggestive of chronic underlying edema, but nothing pitting at this time. PSYCHIATRIC: Appropriate affect and pleasant mood. DIAGNOSTICS: Lab values are as follows: Hematology on 01/19/2017: WBC 10.3; hemoglobin 12.7; hematocrit 39.0; and platelet count is 175,000. Chemistry obtained on 01/19/2017: Sodium 135, potassium 5.1, chloride is 104, carbon dioxide 22, BUN 20, creatinine is 0.8, glucose 347, calcium is 8.8. IMPRESSION AND PLAN: 1. DIABETES MELLITUS TYPE 2 IN THE OBESE. We will continue metformin as well as Lantus. Prescriptions have already been sent to the patient's pharmacy. He will need to follow up with his primary care provider closely for this. 2. PULMONARY HYPERTENSION. The patient needs to follow up with Dr. Skylar Rhodes at [facility] for right-sided heart catheterization. He was instructed to do this and follow up with contingent on a discharge this past summer. This does need to be proceeded with, that way further management of the patient's pulmonary hypertension can be optimized. 3. MORBID OBESITY with a BMI of 60. We will encourage weight reduction. Hopefully, with glycemia control with metformin, this can improve. 4. OBSTRUCTIVE SLEEP APNEA. Continue continuous positive airway pressure. The patient does have underlying hyperventilation syndrome as well. 5. CHRONIC SYSTOLIC CONGESTIVE HEART FAILURE. The patient's echo back in February of 2016 showed an ejection fraction of 35% to 40%. The patient after that underwent a PET myocardial scan, which showed an ejection fraction of 49%, which is most likely more telemarketing representative of his true contractility. I have encouraged the patient to comply with medications. I have resumed his diuretic therapy and have sent this to his pharmacy. Beta-sylvie is deferred for now given the patient's heart rate. We will follow. 6. CHRONIC HYPOXEMIC RESPIRATORY FAILURE. Continue supportive measures. 7. POSSIBLE CORONARY ARTERY DISEASE. Upon the review of the patient's records from the [facility] including a dedicated CTA, the patient appears to have clean coronaries. The patient has stated that he was stented 20 years ago in [place]; however, that is what had made the patient 21 years old and Interventional Cardiology Service was not available at that facility at that time, so once again this is doubtful and there was no evidence of significant CAD on imaging. The patient also has not been on any antiplatelet therapy, but given risk factors, we will start the patient on baby aspirin and once again, encouraged to follow through with [facility]. 8. DEEP VEIN THROMBOSIS PROPHYLAXIS as per surgery. 9. GRAM-NEGATIVE BRANDI IN 1 BLOOD CULTURE. The patient has received, this is day #3 of IV antibiotic therapy, which should suffice this. Given the patient's afebrile state, this could be transitioned for a p.o. course if the patient is discharged. DISPOSITION: THE PATIENT IS A FULL CODE. Pending the patient's symptomatology and diagnostic findings, we will reevaluate in the a.m. if the patient is still here. The patient is okay for discharge from a medical perspective for followup. Time spent on this followup, including assessment/plan, physical examination, and patient education is 25 minutes. DICTATING PHYSICIAN: RYAN WILSON NP [id number] Y#: [id number] ID: [id number] JOB#: [id number] ACCT: [id number] cc: >
[2017-01-20] MEDS: INSULIN GLARGINE,HUM.REC.ANLOG 300 UNIT/3 ML INSULN.PEN SUBCUT SCH ×2 (09:58→21:54)
[2017-01-20] MEDS: BUMETANIDE 1 MG TABLET PO SCH (09:59)
[2017-01-20] MEDS: ASPIRIN 81 MG TABLET, CHEWABLE PO SCH (09:59)
[2017-01-20] MEDS: CEFOXITIN 1 GM/D5W RTU 1 GM/50 ML RTUPB IV SCH ×2 (09:59→21:06)
--- NOTE | 2017-01-20 10:14 | PROGRESS NOTE E ---
Progress Note NAME: JC ORANTES : 1975 AGE: 41Y DATE: 01/20/2017 ROOM: 324 SUBJECTIVE: He is postop laparoscopic appendectomy. Postop day 2. He has minimal pain in the abdomen. His abdomen is soft, nontender. ANTONETTE drain still draining slightly cloudy fluid. He is afebrile and tolerating his diet well. PLAN: Continue IV antibiotics for another day since he grew gram negative rods in his blood. DICTATING PHYSICIAN: GERARD ESPANA M.D. 1211M 1001 PHY#: [id number] ID: [id number] JOB#: [id number] ACCT: [id number] cc: >
[2017-01-20] MEDS: ONDANSETRON HCL INJ/PF 4 MG/2 ML SDV IV PRN ×3 (11:35→21:14)
[2017-01-20] MEDS ORDERED: SIMETHICONE 80 MG TAB.CHEW PO ONE (15:30)
[2017-01-21] MEDS: ONDANSETRON HCL INJ/PF 4 MG/2 ML SDV IV PRN ×5 (01:12→21:41)
[2017-01-21] MEDS: MORPHINE SULFATE 10 MG/ML INJ IV PRN ×5 (01:12→21:41)
[2017-01-21] MEDS: KETOROLAC TROMETHAMINE INJ/PF 30 MG/1 ML SDV IM PRN (04:00)
[2017-01-21] MEDS: METFORMIN HCL 500 MG TABLET PO SCH ×2 (08:58→16:25)
[2017-01-21] MEDS: INSULIN GLARGINE,HUM.REC.ANLOG 300 UNIT/3 ML INSULN.PEN SUBCUT SCH ×2 (09:54→21:41)
[2017-01-21] MEDS: CEFOXITIN 1 GM/D5W RTU 1 GM/50 ML RTUPB IV SCH ×2 (09:55→21:41)
[2017-01-21] MEDS: BUMETANIDE 1 MG TABLET PO SCH (09:59)
[2017-01-21] MEDS: ASPIRIN 81 MG TABLET, CHEWABLE PO SCH (09:59)
--- NOTE | 2017-01-21 12:13 | PROGRESS NOTE E ---
Progress Note NAME: JC ORANTES : 1975 AGE: 41Y DATE: 01/21/2017 ROOM: 324 SUBJECTIVE: Patient is about the third postop day. He is still complaining of mild generalized abdominal pain and moderate pains at the epigastric area associated with nausea this morning. He has not had any bowel movement or flatus though he claims about 2 days ago, he had a small amount of flatus. His [place] drain was about 200 mL for the past 24 hours. It looks clear and slightly yellowish in color. His temperature this morning is 98.8 and his heart rate is 66 per minute. His abdomen is soft to firm with more tenderness at the epigastric area. He says he has been trying to belch to get some relief from the pain. PLAN: He might be developing gastritis due to the epigastric pains and we will start him on Protonix once a day intravenously. We will continue him on a diet as tolerated. We will leave the drain in for now and hopefully we can discontinue it in the morning. We will repeat his white count to make sure he is not developing anymore infections. Continue to ambulate more. DICTATING PHYSICIAN: GERARD ESPANA M.D. 1211M 1159 PHY#: [id number] ID: [id number] JOB#: [id number] ACCT: [id number] cc: >
[2017-01-21] MEDS ORDERED: PANTOPRAZOLE SODIUM 40 MG VIAL IV ONE (13:00)
[2017-01-22] MEDS: OXYCODONE-ACETAMINOPHEN 5-325 MG TABLET PO PRN ×2 (01:26→06:19)
[2017-01-22 06:29] LABS: HEMOGLOBIN 13.4 g/dL (13.5-17.0); HGB HCT DIFFERENCE 0.2; MEAN CORPUSCULAR HEMOGLOBIN 29.7 pg (27.0-33.4); MEAN CORPUSCULAR HGB CONC 33.5 g/dL (32.0-36.0); MEAN CORPUSCULAR VOLUME 89 fl (80-97); RED BLOOD COUNT 4.51 10^6/uL (4.35-5.55); WHITE BLOOD COUNT 10.6 10^3/uL (4.0-10.5)
[2017-01-22] MEDS: CEFOXITIN 1 GM/D5W RTU 1 GM/50 ML RTUPB IV SCH (08:25)
[2017-01-22] MEDS: INSULIN GLARGINE,HUM.REC.ANLOG 300 UNIT/3 ML INSULN.PEN SUBCUT SCH (08:25)
[2017-01-22] MEDS: BUMETANIDE 1 MG TABLET PO SCH (08:27)
[2017-01-22] MEDS: METFORMIN HCL 500 MG TABLET PO SCH (08:27)
[2017-01-22] MEDS: ASPIRIN 81 MG TABLET, CHEWABLE PO SCH (08:27)
[2017-01-22] MEDS ORDERED: PANTOPRAZOLE SODIUM 40 MG VIAL IV SCH (10:00)
[2017-01-22 10:44] VITALS: BP 127/51
--- NOTE | 2017-01-22 14:32 | PDOC DISCHARGE SUMMARY ---
Discharge Summary (SDC) - Discharge Final Diagnosis: This 41-year-old male was admitted to the hospital on 01/18/2017 with appendicitis. The patient was taken to the operating room by Dr. Zhou where an uneventful laparoscopic appendectomy was performed for suppurative appendicitis. The patient's postop course was uneventful, and his recovery was slow due to the fact that he was morbidly obese. Patient is presently doing well, tolerating his diet, and having good bowel function. The patient is discharged home on oral narcotics, and will be followed in Dr. Zhou's office in 7-10 days. Date of Surgery: 01/18/17 Condition: Stable Forms: Discharge POC-Adult Treatment or Instructions: [facility] instructed in the summer for Right sided Heart Cath Prescriptions: Oxycodone HCl/Acetaminophen [Percocet 10-325 mg Tablet] 1 each PO Q4HP PRN #24 tablet PRN Reason: Oxycodone HCl/Acetaminophen [Percocet 5-325 mg Tablet] 1 tab PO Q4HP PRN #0 tablet PRN Reason: Alcohol Antiseptic Pads [Alcohol Prep Pads] 1 pad TP DAILY PRN #1 pkg PRN Reason: Aspirin [Aspirin 81 mg Chewable Tablet] 81 mg PO DAILY #30 tab.chew Blood Sugar Diagnostic [Test Strips] 1 each ASDIR PRN #1 packet PRN Reason: Blood-Glucose Meter [Blood Glucose Meter] 1 each ASDIR PRN #1 each PRN Reason: Bumetanide [Bumex 1 mg Tablet] 2 mg PO DAILY #60 tablet Insulin Glargine,Hum.rec.anlog [Lantus Insulin 100 Unit/1 ml 10 ml] 15 unit SUBCUT Q12 #3 vial Lancets [Blood Lancets] 1 each ASDIR PRN #1 packet PRN Reason: Metformin HCl 500 mg PO BID #60 tablet Referrals: [facility] [Outside] - 01/28/17 9:15 am MARILYN ZHOU MD [ACTIVE STAFF] - 01/28/17 1:15 pm (steven appy 01/17) Respiratory Treatments at Home: Deep Breathing/Coughing, CPAP Discharge Activity: Activity As Tolerated, Balance Activity w/Rest, No Lifting Over 10 Pounds, Slowly Increase Activity Home Care Assistance: None Needed Report the Following to Your Physician Immediately: Nausea, Vomiting, Increase in Pain, Fever over 101 Degrees, Unusual Bleeding
--- NOTE | 2017-01-22 16:24 | PROGRESS NOTE E ---
Progress Note NAME: JC ORANTES : 1975 AGE: 41Y DATE: 01/21/2017 ROOM: 324 SUBJECTIVE: The patient is lying in bed. He was seen earlier today on rounds. The patient denies nausea, vomiting, or diarrhea. He denies any shortness of breath, dizziness, or chest pain. No fever or chills. The patient has been afebrile. Blood pressure has been in a good range. Blood sugars have been in a good range. The patient does not voice any other concerns at this time. REVIEW OF SYSTEMS: Rest of the review of systems is negative. MEDICATIONS: Have been reviewed. OBJECTIVE: GENERAL: The patient is a 41-year-old male who is awake, alert, and oriented to person, place, time, and situation. He is verbal, conversational, and does not appear to be in any acute distress. VITAL SIGNS: Temperature 98.4, pulse 82, respirations 20, blood pressure 127/51, oxygen saturation is 98% on room air. SKIN: Warm and dry. No rash. Not diaphoretic. HEENT: Pupils equal, round, reactive to light and accommodation. Conjunctivae are pink. NECK: There is no JVP. CARDIOVASCULAR: Heart is regular with no murmur or rub. CHEST: Clear, symmetrical, unlabored. ABDOMEN: Obese, soft, post surgical. EXTREMITIES: No clubbing, cyanosis, or edema. PSYCHIATRIC: Appropriate affect. Pleasant mood. DIAGNOSTICS: Hematology obtained on 01/19/2017: WBCs are 10.3, hemoglobin is 12.7, hematocrit is 39.0, platelet count is 275,000. Chemistry obtained on 01/20/2017: Sodium is 138, potassium 4.5, chloride is 103, carbon dioxide 22, BUN 25, creatinine is 0.82, glucose is 236, calcium is 9.3. IMPRESSION AND PLAN: 1. DIABETES MELLITUS TYPE 2. Will continue metformin and Lantus. Prescriptions have been sent to his pharmacy. 2. PULMONARY HYPERTENSION. The patient needs a followup with Dr. Skylar Rhodes at [facility] for right-sided heart catheterization. He was instructed to do this. Actually it was contingent upon his discharge this past summer. 3. MORBID OBESITY WITH A BMI OF 60. Will encourage weight reduction. Hopefully with glycemic control and metformin this can improve. 4. OBSTRUCTIVE SLEEP APNEA. Will continue CPAP. The patient does have an underlying hyperventilation syndrome as well. 5. CHRONIC SYSTOLIC CONGESTIVE HEART FAILURE. Have resumed the patient's diuretic therapy. His beta sylvie has been deferred due to his heart rate for now. 6. CHRONIC HYPOXEMIC RESPIRATORY FAILURE. Continue supportive measures. 7. DVT PER SURGERY. 8. GRAM NEGATIVE BRANDI IN 1 BLOOD CULTURE BOTTLE. The patient has received day 4 of IV antibiotic therapy. Will repeat cultures and follow. DISPOSITION: The patient is a FULL CODE. Pending patient's symptomatology and diagnostic findings, the patient can be discharged from a hospitalist perspective. Time spent on this followup including assessment, plan, physical examination, patient education is 15 minutes. DICTATING PHYSICIAN: RYAN WILSON NP 1211M [id number] PHY#: [id number] ID: [id number] JOB#: [id number] ACCT: [id number] cc: >
--- NOTE | 2017-01-24 22:41 | PROGRESS NOTE E ---
Progress Note NAME: JC ORANTES : 1975 AGE: 41Y DATE: 01/22/2017 ROOM: 324 SUBJECTIVE: This patient is lying in bed and he feels better today. The patient is ready for discharge. There have been no reported episodes of diarrhea. The patient has appeared to tolerate his metformin. Overall, the patient's blood sugars are very well controlled. Medication as well as diabetic testing supply prescriptions have been sent to the patient's pharmacy and no other concerns are voiced at this time. REVIEW OF SYSTEMS: The rest of review of systems negative. MEDICATIONS: Have been reviewed. OBJECTIVE: GENERAL: The patient is a 41-year-old male who is awake, alert. He is oriented to person, place, time and situation and verbal to conversation and does not appear to be in any acute distress. VITAL SIGNS FOLLOWS: Temperature is 98.4, pulse 82, respirations 20, blood pressure 119/65, oxygen saturation 98% on room air. SKIN: Warm and dry, no rashes, not diaphoretic. HEENT: There is no JVD. CARDIOVASCULAR: Heart is regular, there is no murmur or rub. CHEST: Clear, symmetrical and labored. ABDOMEN: Soft, nontender, nondistended. BACK: No CVA tenderness EXTREMITIES: No clubbing, cyanosis, or edema. PSYCHIATRIC: Appropriate affect and pleasant mood. DIAGNOSTICS: Lab values are as follows: Hematology obtained on 01/22/2017: WBCs are 10.6, hemoglobin 13.4, hematocrit 40.0, platelet count 730,000. Chemistry obtained on 01/20/2017, sodium is 138, potassium 4.5, chloride is 103, carbon dioxide 22, BUN 25, creatinine is 0.2, glucose 236, calcium is 9.3. IMPRESSION AND PLAN: 1. DIABETES MELLITUS TYPE 2. We will continue metformin and Lantus prescriptions and medications have been sent to the pharmacy. 2. PULMONARY HYPERTENSION. The patient needs to followup with Dr. Rhodes at [facility] for right sided heart catheterization. 3. MORBID OBESITY WITH A BODY MASS INDEX OF 60 AND CLOSED WEIGHT REDUCTION. 4. OBSTRUCTIVE SLEEP APNEA. Continue a CPAP at home. Most likely, this is hypoventilation syndrome. 5. CHRONIC SYSTOLIC CONGESTIVE HEART FAILURE. The patient has resumed his diuretic therapy. Beta sylvie was held due to heart rate. 6. CHRONIC OBSTRUCTIVE PULMONARY DISEASE. Continue current measures. DISPOSITION: The patient is a full code. The patient will be discharged from the hospital and we will sign off at this time. As always, I would like to think the surgicalist for allowing the hospitalist to participate in the care of this patient. Time spent on this followup including assessment and plan and physical exam is 10 minutes. DICTATING PHYSICIAN: RYAN WILSON NP [id number] [id number] PHY#: [id number] ID: [id number] JOB#: [id number] ACCT: [id number] cc: > MTDD
== END 2017-01-22 11:32 | disposition home or self-care (01) | DRG 342 ==
LOC: ER 16:25 → UNDOADMOB 21:57 → EH 21:57 → INTOOBSV 21:57 → EH 22:01 → ICU 01-18 00:55 → OBSVTOIN 01-18 01:00 → 3W 01-18 11:23
PROVIDERS: ATTEND Surgery
PROC: 0DTJ4ZZ Resection of Appendix, Percutaneous Endoscopic Approach (ICD-10-PCS; principal; 2017-01-18)
DX: K35.80 Unspecified acute appendicitis (principal); J96.11 Chronic respiratory failure with hypoxia; I50.22 Chronic systolic (congestive) heart failure; Z68.44 Body mass index [BMI] 60.0-69.9, adult; E11.65 Type 2 diabetes mellitus with hyperglycemia; I27.2 Other secondary pulmonary hypertension; J44.9 Chronic obstructive pulmonary disease, unspecified; E66.01 Morbid (severe) obesity due to excess calories; G47.33 Obstructive sleep apnea (adult) (pediatric); I25.10 Atherosclerotic heart disease of native coronary artery without angina pectoris; Z79.899 Other long term (current) drug therapy; I25.2 Old myocardial infarction; Z95.5 Presence of coronary angioplasty implant and graft; Z90.49 Acquired absence of other specified parts of digestive tract; Z87.891 Personal history of nicotine dependence
CPT/HCPCS: 00840; 36415; 74176; 80048; 80053; 81001; 82962; 83036; 83605; 83690; 85025; 85027; 87040; 87077; 87186; 88304; 93005; 93010; 94660; 96365; 96375; 96376; 99285; G0378; J0131; J0330; J0694; J1100; J1170; J1335; J1815; J1885; J1940; J2250; J2270; J2405; J2704; J3010; J3490; J7030; S0164

== ENCOUNTER 2018-07-14 06:02 | Emergency (ER) | payer MEDICAID, MEDICARE ==
[2018-07-14 06:10] VITALS: BP 138/83
[2018-07-14] MEDS ORDERED: CLINDAMYCIN 900 MG/D5W RTU 900 MG/50 ML RTUPB IV ONE (07:13)
[2018-07-14] MEDS ORDERED: LIDOCAINE 1% INJ-PF (10 MG/ML) 30 ML SDV INJ ONE (07:13)
[2018-07-14] MEDS ORDERED: MORPHINE SULFATE 10 MG/ML INJ IV ONE (07:15)
--- NOTE | 2018-07-14 07:21 | ER Document Report ---
ED Skin Rash/Insect Bite/Abscs - General Chief Complaint: Skin Sore(s) Stated Complaint: SKIN ISSUE Time Seen by Provider: 07/14/18 07:06 Mode of Arrival: Ambulatory Information source: Patient, Relative Notes: Patient is a 42-year-old morbidly obese male comes emergency room complaining of severe left-sided neck pain. He states that started approximately 2-3 days ago and is progressively gotten worse. Patient denies any type of injury. Patient's past medical history pertinent for hypertension and "some breathing problem" TRAVEL OUTSIDE OF THE [place] IN LAST 30 DAYS: No - HPI Patient complains to provider of: Skin rash/lesion, Tender/swollen area Onset: Other - to 3 days ago Onset/Duration: Gradual - During the afternoon his family Quality of pain: Sharp, Stabbing, Throbbing Severity: Severe Pain Level: 5 Skin Character: Erythema, Lesion, Rash - Is really unremarkable neurological exam is fine is a history of early, Tenderness, Warm - MRI Skin Temperature: Warm Quality of rash: Painful Identify cause: No - Possible abscess Exacerbated by: Other - Touch Relieved by: Denies Similar symptoms previously: No Recently seen / treated by doctor: No - Related Data Allergies/Adverse Reactions: No Known Allergies Allergy (Verified 07/14/18 06:03) Past Medical History - General Information source: Patient - Social History Smoking Status: Current Every Day Smoker Cigarette use (# per day): Yes - 1 pack a day Chew tobacco use (# tins/day): No Smoking Education Provided: Yes Frequency of alcohol use: None Drug Abuse: None Lives with: Spouse/Significant other Family History: Reviewed & Not Pertinent, CAD Patient has suicidal ideation: No Patient has homicidal ideation: No - Past Medical History Cardiac Medical History: Reports: Hx Heart Attack - x 2 Pulmonary Medical History: Reports: Hx COPD, Hx Sleep Apnea Renal/ Medical History: Denies: Hx Peritoneal Dialysis Past Surgical History: Reports: Hx Cardiac Surgery - stent, Hx Cholecystectomy, Hx Coronary Stent - Immunizations Hx Diphtheria, Pertussis, Tetanus Vaccination: No Review of Systems - Review of Systems Constitutional: No symptoms reported EENT: No symptoms reported Cardiovascular: No symptoms reported Respiratory: No symptoms reported Gastrointestinal: No symptoms reported Genitourinary: No symptoms reported Male Genitourinary: No symptoms reported Musculoskeletal: No symptoms reported Skin: See HPI, Lesions, Lumps, Rash Hematologic/Lymphatic: No symptoms reported Neurological/Psychological: No symptoms reported -: Yes All other systems reviewed and negative Physical Exam - Vital signs Vitals: Temp Pulse Resp BP Pulse Ox 97.9 F 113 H 22 H 138/83 H 94 07/14/18 06:08 07/14/18 06:08 07/14/18 06:08 07/14/18 06:08 07/14/18 06:08 - Notes Notes: PHYSICAL EXAMINATION: GENERAL: Patient is a well-nourished well-developed 42-year-old morbidly obese male who is in no distress but a lot of discomfort and pain. HEAD: Atraumatic, normocephalic. EYES: Pupils equal round and reactive to light, extraocular movements intact, sclera anicteric, conjunctiva are normal. ENT: Nares patent, oropharynx clear without exudates. Moist mucous membranes. NECK: Examination patient's left side of his neck shows that there is a chain of lesions running along the lateral side of the neck up to and behind the occipital portion. There is a large lesion midway between the angle of the jaw and the midportion of the neck. That is approximately the 5 cm across and feels somewhat fluctuant and is very tender to palpate. 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 There are some satellite lesions that run in a line with it as well that are tender and one is also forming ahead of a pustule. Patient is exceptionally tender in the area. Movement of the neck is limited secondary to pain and discomfort. LUNGS: Patient has bilateral breath sounds breath sounds are decreased throughout with no rhonchi or rales noted mild inspiratory or expiratory wheeze are heard. HEART: Regular rate and rhythm without murmurs ABDOMEN: Soft, nontender, nondistended abdomen. No guarding, no rebound. No masses appreciated. Musculoskeletal: Normal range of motion, no pitting or edema. No cyanosis. NEUROLOGICAL: Normal speech, normal gait. Normal sensory, motor exams PSYCH: Normal mood, normal affect. SKIN: See neck above. Course - Re-evaluation Re-evalutation: 07/14/18 08:02 Approximately 7:45 AM while he was working on patient's chart it was called urgently to patient bedside where he had fallen out of bed. Prior to his having this falling out of bed I had asked patient about history he has had morphine in the past or any reactions to it and his answer was no he was actually thankful that I was waiting to do his I&D until he got the pain medication. The nurse went in and started pushing the morphine patient states that he all of a sudden had left-sided chest pain he stated it felt like someone sticking a needle into a lot of pressure and he got lightheaded he sat up on the bed and as he did his momentum carried him out of bed onto the floor. The railing was down because patient is obese and was not of risk of falling. Again he did inform me that he had no reactions to morphine in the past. At this time as it was being pushed the got lightheaded and the chest pain. I found patient on the floor awake alert and talking after couple of minutes to be asked if he would stand up and we decided to sit him up first also with the aid of the nursing staff we were able to get him on his buttocks relating rested for a few minutes and then again with the help of nursing we were able to support him and pick him up to his feet and then let him walk backwards to the bed. Once in bed patient stated that the chest pain only lasted a brief second and does not have any more pain now. He did complain of left knee pain and on physical exam of the knee that did not see any abrasion did not feel any type of crepitus at the patella but we will do a x-ray. At this point will also do a cardiac workup on him. I believe that this is related to the morphine may be causing a coronary spasm and we will further assess him after the I&D and the lab work is back. 07/14/18 09:45 Patient did well after the incision and drainage. I will have him follow-up with his primary tomorrow or the first of the week. We will put him on clindamycin 4 times a day. We will give him some Percocet for his pain and discomfort. We will also place him on some gabapentin for nerve pain. He has a history of neuropathy as well which will help with that. Patient got to the point after the I&D that he wants to leave the hospital. I had ordered x-ray of his knee and he has refused that. I am sending him home at this point he is doing much better has no complaints right now. - Vital Signs Vital signs: Temp Pulse Resp BP Pulse Ox 97.9 F 113 H 22 H 138/83 H 94 07/14/18 06:08 07/14/18 06:08 07/14/18 06:08 07/14/18 06:08 07/14/18 06:08 - Laboratory Result Diagrams: 07/14/18 07:32 Laboratory results interpreted by me: 07/14/18 07:32 WBC 11.2 H RDW 15.0 H Procedures - Incision and Drainage Left Neck Type: Simple Anesthetic type: 1% Lidocaine mL's of anesthetic: 6 Blade size: 11 I&D procedure: Betadine prep applied Incision Method: Incision made by scalpel Amount/type of drainage: None Notes: 07/14/18 08:48 After I cleaned the first lesion with Betadine I also went along the chain and numbed up a couple of different spots. The main lesion took about 2-1/2-3 mL's I did not get a return on it with the needle inside but I waited about 3 minutes in use a 11 blade and went directly down into the lesion it appears to be just nothing but inflamed tissue. Patient had no relief with the numbing medication. And we got good infiltration in the lesion and he did not feel me use the 11 blade to cut into it but the pressure surrounding it pushes out and around and causes of the pain that he says is still present. Given patient's recent episode of having a reaction to morphine we will send him home on some Percocet. He has again taken that in the past and says it works. I am probably going to cover him also with antiviral in case the presentation turns out to be a weird shingles presentation Fransisco Sami is some benefit and I want to send him home with some gabapentin as well which may help with neuropathy portion of it. Discharge - Discharge Clinical Impression: Abscess, neck Condition: Stable Disposition: HOME, SELF-CARE Instructions: Abscess ([facility]), Cephalexin ([facility]), Clindamycin ([facility]) Additional Instructions: At this point is home and rest. Use warm moist compresses 3-4 times a day. This means a wet rag is warm as you can stand it from the sink. Do not put in the microwave and placed on your neck. Take all of the antibiotics. If the pain and discomfort continues she will need to follow-up with your primary care tomorrow or on Wednesday. Or would always return to ER for recheck. Prescriptions: Cephalexin [Cephalexin 500 MG Tablet] 1 tab PO QID #40 tablet Clindamycin HCl 300 mg PO Q6 #40 capsule Gabapentin 300 mg PO ASDIR PRN #30 ml PRN Reason: Oxycodone HCl/Acetaminophen [Percocet 5-325 mg Tablet] 1 tab PO Q4H PRN #15 tablet PRN Reason: Referrals: LEVON ENCISO MD [Primary Care Provider] - Follow up as needed
[2018-07-14 07:46] LABS: ABSOLUTE BASOPHILS # (AUTO) 0.1 10^3/uL (0.0-0.2); ABSOLUTE EOSINOPHILS # (AUTO) 0.3 10^3/uL (0.0-0.6); ABSOLUTE LYMPHOCYTES (AUTO) 4.3 10^3/uL (0.5-4.7); ABSOLUTE MONOCYTES (AUTO) 0.7 10^3/uL (0.1-1.4); ABSOLUTE NEUT (AUTO) 5.7 10^3/uL (1.7-8.2); BASOPHILS % (AUTO) 1.2 % (0-2); EOSINOPHILS % (AUTO) 2.3 % (0-6); HEMATOCRIT 44.4 % (37.9-51.0); HEMOGLOBIN 15.2 g/dL (13.5-17.0); LYMPHOCYTES % (AUTO) 38.9 % (13-45); MEAN CORPUSCULAR HEMOGLOBIN 30.3 pg (27.0-33.4); MEAN CORPUSCULAR HGB CONC 34.3 g/dL (32.0-36.0); MEAN CORPUSCULAR VOLUME 88 fl (80-97); MONOCYTES % (AUTO) 6.4 % (3-13); PLATELET COUNT 227 10^3/uL (150-450); RED BLOOD COUNT 5.02 10^6/uL (4.35-5.55); SEGMENTED NEUTROPHILS % (AUTO) 51.2 % (42-78); TOTAL CELLS COUNTED % (AUTO) 100 %; WHITE BLOOD COUNT 11.2 10^3/uL (4.0-10.5)
[2018-07-14] MEDS ORDERED: OXYCODONE-ACETAMINOPHEN 5-325 MG TABLET PO ONE (09:05)
--- NOTE | 2018-07-14 09:37 | EKG REPORT ---
SEVERITY:- NORMAL ECG - SINUS RHYTHM : Confirmed by: Jeniffer Kemp MD 14-Jul-2018 09:36:50
== END 2018-07-14 10:20 | disposition home or self-care (01) ==
LOC: ER 06:02
DX: L02.11 Cutaneous abscess of neck (principal); R07.9 Chest pain, unspecified; R42 Dizziness and giddiness; T40.2X5A Adverse effect of other opioids, initial encounter; M25.562 Pain in left knee; W06.XXXA Fall from bed, initial encounter; Y93.89 Activity, other specified; Y92.238 Other place in hospital as the place of occurrence of the external cause; G62.9 Polyneuropathy, unspecified; F17.210 Nicotine dependence, cigarettes, uncomplicated; J44.9 Chronic obstructive pulmonary disease, unspecified; E66.01 Morbid (severe) obesity due to excess calories; I25.2 Old myocardial infarction; Z95.5 Presence of coronary angioplasty implant and graft
CPT/HCPCS: 93005; 99284; 96375; 96365; 36415; 87040; 85025; 84484; 93010; 10060; J3490; J2270; A9270

== ENCOUNTER 2018-11-08 16:35 | Emergency (ER) | payer MEDICAID, MEDICARE ==
[2018-11-08 17:00] VITALS: BP 158/90
[2018-11-08] MEDS ORDERED: NORMAL SALINE 500 ML IV ONE (18:16)
[2018-11-08] MEDS ORDERED: HYDROCODONE/ACETAMINOPHEN 5-325 MG (6 TAB/ER DISP) PO PRN (18:21)
[2018-11-08] MEDS ORDERED: VALACYCLOVIR HCL 500 MG TABLET PO ONE (18:21)
[2018-11-08] MEDS ORDERED: PREDNISONE 20 MG TABLET PO ONE (18:21)
--- NOTE | 2018-11-08 18:26 | ER Document Report ---
ED Skin Rash/Insect Bite/Abscs - General Chief Complaint: Abdominal Pain Stated Complaint: LEFT SIDE PAIN Time Seen by Provider: 11/08/18 18:11 Primary Care Provider: LEVON ENCISO MD [Primary Care Provider] - Follow up as needed Mode of Arrival: Ambulatory Information source: Patient TRAVEL OUTSIDE OF THE [place] IN LAST 30 DAYS: No - HPI Patient complains to provider of: Skin rash/lesion Onset: Yesterday Onset/Duration: Worse Quality of pain: Burning Severity: Moderate Pain Level: 4 Skin Character: Vesicular Skin Temperature: Warm Quality of rash: Painful Exacerbated by: Denies Relieved by: Denies Similar symptoms previously: No Recently seen / treated by doctor: No Notes: Patient is a 42-year-old male presenting to the emergency room complaining of burning sensation with lesions to his skin on his left flank that he first noticed yesterday, no history of similar symptoms previously, no contact with anything that may have caused a reaction, denies any nausea or vomiting, no fever or chills, no dysuria or hematuria - Related Data Allergies/Adverse Reactions: No Known Allergies Allergy (Verified 11/08/18 16:54) Past Medical History - General Information source: Patient - Social History Smoking Status: Unknown if Ever Smoked Family History: Reviewed & Not Pertinent, CAD - Past Medical History Cardiac Medical History: Reports: Hx Heart Attack - x 2 Pulmonary Medical History: Reports: Hx COPD, Hx Sleep Apnea Renal/ Medical History: Denies: Hx Peritoneal Dialysis Past Surgical History: Reports: Hx Cardiac Surgery - stent, Hx Cholecystectomy, Hx Coronary Stent - Immunizations Hx Diphtheria, Pertussis, Tetanus Vaccination: No Review of Systems - Review of Systems Constitutional: No symptoms reported EENT: No symptoms reported Cardiovascular: No symptoms reported Respiratory: No symptoms reported Gastrointestinal: No symptoms reported Genitourinary: No symptoms reported Male Genitourinary: No symptoms reported Musculoskeletal: No symptoms reported Skin: See HPI Hematologic/Lymphatic: No symptoms reported Neurological/Psychological: No symptoms reported -: Yes All other systems reviewed and negative Physical Exam - Vital signs Vitals: Temp Pulse Resp BP Pulse Ox 98.2 F 89 20 158/90 H 96 11/08/18 16:59 11/08/18 16:59 11/08/18 16:59 11/08/18 16:59 11/08/18 16:59 - Notes Notes: - General General appearance: Appears well, Alert In distress: None - HEENT Head: Normocephalic, Atraumatic Eyes: Normal Conjunctiva: Normal Extraocular movements intact: Yes Eyelashes: Normal Pupils: PERRL - Respiratory Respiratory status: No respiratory distress - Cardiovascular Rhythm: Regular - Abdominal Inspection: Normal - Back Back: Normal - Extremities General upper extremity: Normal inspection General lower extremity: Normal inspection - Neurological Neuro grossly intact: Yes Orientation: AAOx4 [place] Coma Scale Eye Opening: Spontaneous [place] Coma Scale Verbal: Oriented [place] Coma Scale Motor: Obeys Commands [place] Coma Scale Total: 15 - Psychological Associated symptoms: Normal affect, Normal mood - Skin Skin Temperature: Warm Skin Moisture: Dry Skin Color: In a single dermatome of skin on the left side of the flank is several vesicular raised erythematous lesions Course - Re-evaluation Re-evalutation: 11/08/18 20:50 Findings on physical exam consistent with shingles, patient started on antiviral medication and provided with pain medication and Medrol Dosepak, advised to follow-up with primary care or return if symptoms worsen, patient acknowledges understanding and agreement with this plan - Vital Signs Vital signs: Temp Pulse Resp BP Pulse Ox 98.2 F 89 20 158/90 H 96 11/08/18 16:59 11/08/18 16:59 11/08/18 16:59 11/08/18 16:59 11/08/18 16:59 Discharge - Discharge Clinical Impression: Shingles Condition: Stable Disposition: HOME, SELF-CARE Instructions: Shingles ([facility]) Additional Instructions: Follow up with your primary care provider in one to 2 days. Return to the emergency room immediately if symptoms worsen or any additional concerns. Prescriptions: Hydrocodone/Acetaminophen [[place] 5-325 mg Tablet] 1 tab PO Q6HP PRN #14 tablet PRN Reason: Methylprednisolone [Medrol Dosepack (4 mg/Tab) 21 Tab/Dosepak] 4 mg PO ASDIR PRN #21 tab.ds.pk PRN Reason: Valacyclovir HCl [Valacyclovir] 1,000 mg PO TID #30 tablet Referrals: LEVON ENCISO MD [Primary Care Provider] - Follow up as needed
== END 2018-11-08 18:38 | disposition home or self-care (01) ==
LOC: ER 16:35
DX: B02.9 Zoster without complications (principal); I25.2 Old myocardial infarction; J44.9 Chronic obstructive pulmonary disease, unspecified; Z95.5 Presence of coronary angioplasty implant and graft
CPT/HCPCS: 99283; A9270 ×3; J7512

== ENCOUNTER 2019-05-19 18:55 | Inpatient (IN) | payer MEDICARE ==
[2019-05-19] MEDS ORDERED: HYDROCODONE/ACETAMINOPHEN 5-325 MG TABLET PO ONE (20:20)
[2019-05-19] MEDS ORDERED: NORMAL SALINE 1000 ML 1,000 ML IV ONE (20:21)
--- NOTE | 2019-05-19 20:22 | ER Document Report ---
ED Medical Screen (RME) - General Chief Complaint: Neck and Upper Back Pain Stated Complaint: NECK PAIN Time Seen by Provider: 05/19/19 20:10 Primary Care Provider: LEVON ENCISO MD [Primary Care Provider] - Follow up as needed Notes: Patient is a 43-year-old male who presents to the emergency department with a chief complaint of neck pain. He has had his pain for the past 4 days. He has an area of redness. Denies any fever, body aches, or chills. Exam: Abscess noted to the left posterior neck. I have greeted and performed a rapid initial assessment of this patient. A comprehensive ED assessment and evaluation of the patient, analysis of test results and completion of medical decision making process will be conducted by an additional ED providers. TRAVEL OUTSIDE OF THE [place] IN LAST 30 DAYS: No - Related Data Allergies/Adverse Reactions: No Known Allergies Allergy (Verified 05/19/19 20:07) Past Medical History - Social History Frequency of alcohol use: None Drug Abuse: None - Past Medical History Cardiac Medical History: Reports: Hx Heart Attack - x 2 Pulmonary Medical History: Reports: Hx COPD, Hx Sleep Apnea Endocrine Medical History: Reports: Hx Diabetes Mellitus Type 2 Renal/ Medical History: Denies: Hx Peritoneal Dialysis Past Surgical History: Reports: Hx Cardiac Surgery - stent, Hx Cholecystectomy, Hx Coronary Stent - Immunizations Hx Diphtheria, Pertussis, Tetanus Vaccination: No Physical Exam - Vital signs Vitals: Temp Pulse Resp BP 97.0 F 98 20 164/87 H 05/19/19 19:34 05/19/19 19:34 05/19/19 19:34 05/19/19 19:34 Course - Vital Signs Vital signs: Temp Pulse Resp BP Pulse Ox 97.0 F 98 20 164/87 H 05/19/19 19:34 05/19/19 19:34 05/19/19 19:34 05/19/19 19:34 Doctor's Discharge - Discharge Referrals: LEVON ENCISO MD [Primary Care Provider] - Follow up as needed
[2019-05-19 21:01] LABS: ABSOLUTE BASOPHILS # (AUTO) 0.2 10^3/uL (0.0-0.2); ABSOLUTE EOSINOPHILS # (AUTO) 0.1 10^3/uL (0.0-0.6); ABSOLUTE LYMPHOCYTES (AUTO) 4.1 10^3/uL (0.5-4.7); ABSOLUTE MONOCYTES (AUTO) 0.7 10^3/uL (0.1-1.4); ABSOLUTE NEUT (AUTO) 7.1 10^3/uL (1.7-8.2); BASOPHILS % (AUTO) 1.5 % (0-2); EOSINOPHILS % (AUTO) 1.2 % (0-6); HEMATOCRIT 48.4 % (37.9-51.0); HEMOGLOBIN 16.2 g/dL (13.5-17.0); LYMPHOCYTES % (AUTO) 33.2 % (13-45); MEAN CORPUSCULAR HEMOGLOBIN 29.9 pg (27.0-33.4); MEAN CORPUSCULAR HGB CONC 33.4 g/dL (32.0-36.0); MEAN CORPUSCULAR VOLUME 89 fl (80-97); MONOCYTES % (AUTO) 5.9 % (3-13); PLATELET COUNT 269 10^3/uL (150-450); RED BLOOD COUNT 5.42 10^6/uL (4.35-5.55); RED CELL DISTRIBUTION WIDTH 14.7 % (11.5-14.0); SEGMENTED NEUTROPHILS % (AUTO) 58.2 % (42-78); TOTAL CELLS COUNTED % (AUTO) 100 %; WHITE BLOOD COUNT 12.3 10^3/uL (4.0-10.5)
[2019-05-19 21:22] LABS: ANION GAP 11 (5-19); BLOOD UREA NITROGEN 12 mg/dL (7-20); CARBON DIOXIDE 25 mmol/L (22-30); CHLORIDE 99 mmol/L (98-107); GLUCOSE 264 mg/dL (75-110); POTASSIUM 4.4 mmol/L (3.6-5.0)
--- NOTE | 2019-05-19 23:15 | ER Document Report ---
ED General - General Chief Complaint: Neck and Upper Back Pain Stated Complaint: NECK PAIN Time Seen by Provider: 05/19/19 20:10 Primary Care Provider: LEVON ENCISO MD [Primary Care Provider] - Follow up as needed TRAVEL OUTSIDE OF THE [place] IN LAST 30 DAYS: No - HPI Notes: Patient complains of abscess to lateral aspect of left part posterior aspect of neck. No recent fevers chills nausea vomiting or diarrhea or signs of systemic illness. He also has been having red scratchy eyes for the last 3 days. He was run a child who had pinkeye. He states that when he goes to sleep and he has to break his eyelids apart from the purulence coming from his eyes. No vision changes - Related Data Allergies/Adverse Reactions: No Known Allergies Allergy (Verified 05/19/19 20:07) Past Medical History - Social History Smoking Status: Current Every Day Smoker Frequency of alcohol use: None Drug Abuse: None Family History: Reviewed & Not Pertinent, CAD Patient has suicidal ideation: No Patient has homicidal ideation: No - Past Medical History Cardiac Medical History: Reports: Hx Heart Attack - x 2 Pulmonary Medical History: Reports: Hx COPD, Hx Sleep Apnea Endocrine Medical History: Reports: Hx Diabetes Mellitus Type 2 Renal/ Medical History: Denies: Hx Peritoneal Dialysis Past Surgical History: Reports: Hx Cardiac Surgery - stent, Hx Cholecystectomy, Hx Coronary Stent - Immunizations Hx Diphtheria, Pertussis, Tetanus Vaccination: No Review of Systems - Review of Systems Constitutional: No symptoms reported EENT: See HPI Cardiovascular: No symptoms reported Respiratory: No symptoms reported Gastrointestinal: No symptoms reported Genitourinary: No symptoms reported Male Genitourinary: No symptoms reported Musculoskeletal: No symptoms reported Skin: See HPI Hematologic/Lymphatic: No symptoms reported Neurological/Psychological: No symptoms reported Physical Exam - Vital signs Vitals: Temp Pulse Resp BP 97.0 F 98 20 164/87 H 05/19/19 19:34 05/19/19 19:34 05/19/19 19:34 05/19/19 19:34 - General General appearance: Appears well, Alert - HEENT Head: Normocephalic, Atraumatic Eyes: Other - Injected conjunctiva and sclera with out any evidence of hypopyon or hyphema Extraocular movements intact: Yes Pupils: PERRL Neck: Other - Mild induration and erythema without warmth lateral aspect left side of neck with small sinus with purulence at sinus site scabbed over Course - Re-evaluation Re-evalutation: 05/19/19 23:14 Patient is insulin-dependent diabetic no systemic signs of illness labs within normal limits are nonsignificant. Due to location of abscess will obtain CT of neck soft tissue for further evaluation. Patient also has signs and symptoms consistent with conjunctivitis 05/20/19 01:55 Patient will be admitted for IV antibiotics for cellulitis - Vital Signs Vital signs: Temp Pulse Resp BP Pulse Ox 97.0 F 98 20 164/87 H 05/19/19 19:34 05/19/19 19:34 05/19/19 19:34 05/19/19 19:34 - Laboratory Result Diagrams: 05/19/19 20:48 05/19/19 20:48 Laboratory results interpreted by me: 05/19/19 05/19/19 20:48 20:48 WBC 12.3 H RDW 14.7 H Sodium 135.1 L Glucose 264 H Discharge - Discharge Clinical Impression: Cellulitis Qualifiers: Site of cellulitis: unspecified site Qualified Code(s): L03.90 - Cellulitis, unspecified Condition: Good Disposition: ADMITTED INPATIENT Admitting Provider: Boy (Hospitalist) Unit Admitted: Medical Floor Referrals: LEVON ENCISO MD [Primary Care Provider] - Follow up as needed
[2019-05-20] MEDS ORDERED: HYDROMORPHONE HCL INJ/PF 2 MG/ML AMPULE IV ONE (00:04)
[2019-05-20] MEDS ORDERED: RINGERS SOLUTION,LACTATED 1,000 ML IV ONE (00:54)
--- NOTE | 2019-05-20 01:32 | RADIOLOGY REPORT (SQ) ---
EXAM DESCRIPTION: CT NECK WITH IV CONTRAST COMPLETED DATE/TME: 05/19/2019 20:21 CLINICAL HISTORY: 43 years Male, abcess Comparison: None. Technique: IV contrast. Coronal and sagittal reformat. This exam was performed according to our departmental dose-optimization program, which includes automated exposure control, adjustment of the mA and/or kV according to patient size and/or use of iterative reconstruction technique. [facility]: Dose Right [facility]: CareDose [facility]: Dose Right [facility]: Teradose 4D [facility]: Smart RECESS. LIMITATIONS: Motion artifact. Body habitus. Findings: Orbits, paranasal sinuses, and skull base: Partially visualized components appear unremarkable. Nasopharynx: Normal. Suprahyoid neck: Normal oropharynx, oral cavity, parapharyngeal space, and retropharyngeal space. Infrahyoid neck: Normal larynx, hypopharynx, and supraglottis. Thyroid: Normal. Thoracic inlet: Normal lung apices and brachial plexus. Lymph nodes: Mild submandibular lymphadenopathy bilaterally. Vascular structures: Normal. Other findings: Moderate subcutaneous edema/cellulitis involving the subcutaneous fat layers of the left paracentral posterior nuchal tissues in an area measuring up to 5 cm. No evidence of abscess. No drainable fluid collection. Impression: 1. Moderate subcutaneous edema/cellulitis involving the subcutaneous fat layers of the left paracentral posterior nuchal tissues in an area measuring up to 5 cm. No evidence of abscess. No drainable fluid collection. 2. Mild bilateral submandibular lymphadenopathy.
[2019-05-20] MEDS ORDERED: PIPERACILLIN/TAZOBACTAM 4.5 GM VIAL IV ONE (01:46)
[2019-05-20] MEDS ORDERED: VANCOMYCIN HCL INJ 1000 MG VIAL IV ONE (01:46)
[2019-05-20] MEDS ORDERED: DEXTROSE 40% GEL 15 GM TUBE PO PRN ×4 (01:58→10:36)
[2019-05-20] MEDS ORDERED: IPRATROPIUM/ALBUTEROL 0.5-2.5 MG/3 ML AMPUL NEB PRN (01:58)
[2019-05-20] MEDS ORDERED: DEXTROSE 50%-WATER 25 GM/50 ML DISP.SYRIN IV PRN ×4 (01:58→10:36)
[2019-05-20] MEDS ORDERED: GLUCAGON,HUMAN RECOMB 1 MG INJ IM PRN ×2 (01:58→10:36)
[2019-05-20] MEDS ORDERED: MAGNESIUM HYDROXIDE SUSP 30 ML UDCUP PO PRN (01:58)
[2019-05-20] MEDS ORDERED: MAG HYDROX/AL HYDROX/SIMETH SUSP 30 ML UDCUP PO PRN (01:58)
[2019-05-20] MEDS ORDERED: PIPERACILLIN/TAZOBACTAM 4.5 GM VIAL IV PRN (02:22)
[2019-05-20] MEDS ORDERED: INSULIN GLARGINE,HUM.REC.ANLOG 1,000 UNIT/10 ML VIAL SUBCUT ONE (02:30)
[2019-05-20] MEDS ORDERED: LINEZOLID 600 MG/300 ML RTUPB IV ONE ×2 (02:30→02:54)
[2019-05-20 02:59] LABS: ANION GAP 6 (5-19); BLOOD UREA NITROGEN 11 mg/dL (7-20); CALCIUM 8.6 mg/dL (8.4-10.2); CARBON DIOXIDE 28 mmol/L (22-30); CHLORIDE 100 mmol/L (98-107); GLUCOSE 240 mg/dL (75-110)
[2019-05-20] MEDS ORDERED: KETOROLAC TROMETHAMINE INJ/PF 30 MG/1 ML SDV ONE (03:48)
[2019-05-20] MEDS: ACETAMINOPHEN 325 MG TABLET PO PRN ×3 (04:05→14:44)
[2019-05-20] MEDS: KETOROLAC TROMETHAMINE INJ/PF 30 MG/1 ML SDV IV PRN ×3 (04:07→19:04)
[2019-05-20] MEDS: PIPERACILLIN SODIUM/TAZOBACTAM 4.5 GM in NORMAL SALINE 100 ML IV SCH ×4 (06:23→23:13)
[2019-05-20] MEDS: HEPARIN SOD (PORCINE) 5,000 UNIT/ML 1 ML VIAL SUBCUT SCH ×3 (06:28→22:32)
--- NOTE | 2019-05-20 06:53 | PDOC H&P ---
History of Present Illness Admission Date/PCP: 05/20/19 02:07 LEVON ENCISO MD Patient complains of: Neck pain History of Present Illness: JC ORANTES is a 43 year old male with a past medical history of coronary artery disease with stent, diabetes without medication, morbid obesity, obstructive sleep apnea, oxygen dependent COPD and tobacco dependence. He presents with 5 days of pain in the posterior neck at the hairline. In the emergency room he is found to have cellulitis and 5 cm of edema of the subcutaneous fat without evidence of abscess. He started on vancomycin and referred to the hospitalist for admission. Patient is unaware of his average blood sugars he does not check. He denies recent antibiotic use. Past Medical History Cardiac Medical History: Reports: Myocardial Infarction - x 2 Pulmonary Medical History: Reports: Chronic Obstructive Pulmonary Disease (COPD) , Sleep Apnea Endocrine Medical History: Reports: Diabetes Mellitus Type 2, Obesity Psychiatric Medical History: Reports: Tobacco Dependency Denies: Depression Past Surgical History Past Surgical History: Reports: Cholecystectomy, Coronary Stent Social History Smoking Status: Current Every Day Smoker Cigarettes Packs Per Day: 2 Number of Years Smokin Frequency of Alcohol Use: None Hx Recreational Drug Use: No Drugs: None Hx Prescription Drug Abuse: No - Advance Directive Resuscitation Status: Full Code Family History Family History: CAD, DM Parental Family History Reviewed: Yes Children Family History Reviewed: Yes Sibling(s) Family History Reviewed.: Yes Medication/Allergy Home Medications: Aspirin [Aspirin 81 mg Chewable Tablet] 81 mg PO DAILY #30 tab.chew 01/20/17 Bumetanide [Bumex 1 mg Tablet] 2 mg PO DAILY #60 tablet 01/20/17 Insulin Glargine,Hum.rec.anlog [Lantus (Pyxis) Insulin 100 Unit/1 ml 10 ml] 15 unit SUBCUT Q12 #3 vial 01/20/17 Metformin HCl 500 mg PO BID #60 tablet 01/20/17 Alcohol Antiseptic Pads [Alcohol Prep Pads] 1 pad TP DAILY PRN #1 pkg 01/22/17 Blood Sugar Diagnostic [Test Strips] 1 each ASDIR PRN #1 packet 01/22/17 Blood-Glucose Meter [Blood Glucose Meter] 1 each ASDIR PRN #1 each 01/22/17 Lancets [Blood Lancets] 1 each ASDIR PRN #1 packet 01/22/17 Oxycodone HCl/Acetaminophen [Percocet 10-325 mg Tablet] 1 each PO Q4HP PRN #24 tablet 01/22/17 Oxycodone HCl/Acetaminophen [Percocet 5-325 mg Tablet] 1 tab PO Q4HP PRN #0 tablet 01/22/17 Cephalexin [Cephalexin 500 MG Tablet] 1 tab PO QID #40 tablet 07/14/18 Clindamycin HCl 300 mg PO Q6 #40 capsule 07/14/18 Gabapentin 300 mg PO ASDIR PRN #30 ml 07/14/18 Oxycodone HCl/Acetaminophen [Percocet 5-325 mg Tablet] 1 tab PO Q4H PRN #15 tablet 07/14/18 Hydrocodone/Acetaminophen [[place] 5-325 mg Tablet] 1 tab PO Q6HP PRN #14 tablet 11/08/18 Methylprednisolone [Medrol Dosepack (4 mg/Tab) 21 Tab/Dosepak] 4 mg PO ASDIR PRN #21 tab.ds.pk 11/08/18 Valacyclovir HCl [Valacyclovir] 1,000 mg PO TID #30 tablet 11/08/18 Allergies/Adverse Reactions: lemon Allergy (Unknown, Verified 05/20/19 06:22) tunica-biloxi Allergy (Verified 05/20/19 06:22) Review of Systems Constitutional: PRESENT: as per HPI, chills, fatigue, headache(s), weight loss Eyes: ABSENT: visual disturbances Ears: ABSENT: hearing changes Cardiovascular: ABSENT: chest pain, dyspnea on exertion, edema, orthropnea, palpitations Respiratory: ABSENT: cough, hemoptysis Gastrointestinal: ABSENT: abdominal pain, constipation, diarrhea, hematemesis, hematochezia, nausea, vomiting Genitourinary: ABSENT: dysuria, hematuria Musculoskeletal: PRESENT: as per HPI. ABSENT: joint swelling Integumentary: ABSENT: rash, wounds Neurological: ABSENT: abnormal gait, abnormal speech, confusion, dizziness, focal weakness, syncope Psychiatric: ABSENT: anxiety, depression, homidical ideation, suicidal ideation Endocrine: PRESENT: polydipsia, polyphagia, polyuria. ABSENT: cold intolerance, heat intolerance Physical Exam Vital Signs: Temp Pulse Resp BP Pulse Ox 98.6 F 113 H 27 H 113/94 H 98 05/20/19 04:07 05/20/19 04:07 05/20/19 04:15 05/20/19 04:07 05/20/19 04:15 Intake & Output 05/18/19 05/19/19 05/20/19 11:59 11:59 11:59 Intake Total 1680 Balance 1680 Weight 178.7 kg General appearance: PRESENT: cooperative, mild distress, morbidly obese, well- developed Head exam: PRESENT: atraumatic, normocephalic Head Image: 1 - 4 x 4 cm erythemic indurated with pain without fluctuance. Eye exam: PRESENT: conjunctiva pink, EOMI, PERRLA. ABSENT: scleral icterus Ear exam: PRESENT: normal external ear exam Mouth exam: PRESENT: moist, tongue midline Neck exam: ABSENT: carotid bruit, JVD, lymphadenopathy, thyromegaly Respiratory exam: PRESENT: clear to auscultation milagros. ABSENT: rales, rhonchi, wheezes Cardiovascular exam: PRESENT: RRR. ABSENT: diastolic murmur, rubs, systolic murmur Pulses: PRESENT: normal dorsalis pedis pul Vascular exam: PRESENT: normal capillary refill GI/Abdominal exam: PRESENT: normal bowel sounds, soft. ABSENT: distended, guarding, mass, organolmegaly, rebound, tenderness Rectal exam: PRESENT: deferred Extremities exam: PRESENT: full ROM. ABSENT: calf tenderness, clubbing, pedal edema Neurological exam: PRESENT: alert, awake, oriented to person, oriented to place, oriented to time, oriented to situation, CN II-XII grossly intact. ABSENT: motor sensory deficit Psychiatric exam: PRESENT: appropriate affect, normal mood. ABSENT: homicidal ideation, suicidal ideation Skin exam: PRESENT: other - Posterior scalp, left of center at the hairline 4 x 4 centimeter of erythema and induration without fluctuance Results Laboratory Results: 05/19/19 20:48 05/20/19 02:20 05/19/19 05/19/19 05/19/19 20:48 20:48 20:48 WBC 12.3 H RBC 5.42 Hgb 16.2 Hct 48.4 MCV 89 MCH 29.9 MCHC 33.4 RDW 14.7 H Plt Count 269 Seg Neutrophils % 58.2 Sodium 135.1 L Potassium 4.4 Chloride 99 Carbon Dioxide 25 Anion Gap 11 BUN 12 Creatinine 0.84 Est GFR ( Amer) > 60 Glucose 264 H Calcium 9.0 TSH 1.08 05/20/19 02:20 WBC RBC Hgb Hct MCV MCH MCHC RDW Plt Count Seg Neutrophils % Sodium 134.1 L Potassium 4.0 Chloride 100 Carbon Dioxide 28 Anion Gap 6 BUN 11 Creatinine 0.78 Est GFR ( Amer) > 60 Glucose 240 H Calcium 8.6 TSH Assessment and Plan - Diagnosis (1) Cellulitis Qualifiers: Site of cellulitis: unspecified site Qualified Code(s): L03.90 - Cellulitis, unspecified Is this a current diagnosis for this admission?: Yes Plan: Vancomycin discontinued as unable to reach therapeutic level and morbid obesity. Zyvox and Zosyn initiated empirically, follow-up CBC, culture and surgical consult. (2) Obstructive sleep apnea Is this a current diagnosis for this admission?: Yes Plan: BiPAP when asleep. Avoid medications reducing respiratory drive. (3) Diabetes Qualifiers: Diabetes mellitus type: type 2 Diabetes mellitus superintendent terminal insulin use: without fdc use Diabetes mellitus complication status: with hyperglycemia Qualified Code(s): E11.65 - Type 2 diabetes mellitus with hyperglycemia Is this a current diagnosis for this admission?: Yes Plan: Humalog sliding scale, follow-up A1c - Time Time Spent with patient: 25-34 minutes - Inpatient Certification Medical Necessity: Need Close Monitoring Due to Risk of Patient Decompensation
--- NOTE | 2019-05-20 07:57 | PDOC CONSULTATION ---
Consultation Consult Date: 05/20/19 Provider Consulted: GERARD ESPANA Consult reason:: abscess back of neck History of Present Illness Admission Date/PCP: 05/20/19 02:07 LEVON ENCISO MD History of Present Illness: JC ORANTES is a 43 year old male diabetic noted pains on the back of the neck 4 days ago. Pains were getting worse so went to ED last night. He was then admitted for cellulitis ,starting abscess of the back of the neck. Past Medical History Cardiac Medical History: Reports: Myocardial Infarction - x 2 Pulmonary Medical History: Reports: Chronic Obstructive Pulmonary Disease (COPD), Sleep Apnea Endocrine Medical History: Reports: Diabetes Mellitus Type 2, Obesity Psychiatric Medical History: Reports: Tobacco Dependency Denies: Depression Past Surgical History Past Surgical History: Reports: Cholecystectomy, Coronary Stent Social History Smoking Status: Current Every Day Smoker Cigarettes Packs Per Day: 2 Number of Years Smokin Frequency of Alcohol Use: None Hx Recreational Drug Use: No Drugs: None Hx Prescription Drug Abuse: No - Advance Directive Resuscitation Status: Full Code Family History Family History: CAD, DM Parental Family History Reviewed: Yes Children Family History Reviewed: No Sibling(s) Family History Reviewed.: No Medication/Allergy Home Medications: Aspirin [Aspirin 81 mg Chewable Tablet] 81 mg PO DAILY #30 tab.chew 01/20/17 Bumetanide [Bumex 1 mg Tablet] 2 mg PO DAILY #60 tablet 01/20/17 Insulin Glargine,Hum.rec.anlog [Lantus (Pyxis) Insulin 100 Unit/1 ml 10 ml] 15 unit SUBCUT Q12 #3 vial 01/20/17 Metformin HCl 500 mg PO BID #60 tablet 01/20/17 Alcohol Antiseptic Pads [Alcohol Prep Pads] 1 pad TP DAILY PRN #1 pkg 01/22/17 Blood Sugar Diagnostic [Test Strips] 1 each ASDIR PRN #1 packet 01/22/17 Blood-Glucose Meter [Blood Glucose Meter] 1 each ASDIR PRN #1 each 01/22/17 Lancets [Blood Lancets] 1 each ASDIR PRN #1 packet 01/22/17 Oxycodone HCl/Acetaminophen [Percocet 10-325 mg Tablet] 1 each PO Q4HP PRN #24 tablet 01/22/17 Oxycodone HCl/Acetaminophen [Percocet 5-325 mg Tablet] 1 tab PO Q4HP PRN #0 tablet 01/22/17 Cephalexin [Cephalexin 500 MG Tablet] 1 tab PO QID #40 tablet 07/14/18 Clindamycin HCl 300 mg PO Q6 #40 capsule 07/14/18 Gabapentin 300 mg PO ASDIR PRN #30 ml 07/14/18 Oxycodone HCl/Acetaminophen [Percocet 5-325 mg Tablet] 1 tab PO Q4H PRN #15 tablet 07/14/18 Hydrocodone/Acetaminophen [[place] 5-325 mg Tablet] 1 tab PO Q6HP PRN #14 tablet 0 11/08/18 Methylprednisolone [Medrol Dosepack (4 mg/Tab) 21 Tab/Dosepak] 4 mg PO ASDIR PRN #21 tab.ds.pk 11/08/18 Valacyclovir HCl [Valacyclovir] 1,000 mg PO TID #30 tablet 11/08/18 Allergies/Adverse Reactions: lemon Allergy (Unknown, Verified 05/20/19 06:22) [place] Allergy (Verified 05/20/19 06:22) Review of Systems Constitutional: PRESENT: as per HPI Respiratory: PRESENT: other - uses Oxygen at home Physical Exam Vital Signs: Temp Pulse Resp BP Pulse Ox 98.6 F 113 H 27 H 113/94 H 98 05/20/19 04:07 05/20/19 04:07 05/20/19 04:15 05/20/19 04:07 05/20/19 04:15 Intake & Output 05/19/19 05/20/19 05/21/19 06:59 06:59 06:59 Intake Total 1680 Balance 1680 Weight 178.7 kg General appearance: PRESENT: mild distress Exam: Has a very tender reddish discoloration around 4cm with an elevated yellowish area in the middle about 3 mm in diameter . Head exam: PRESENT: atraumatic Eye exam: PRESENT: conjunctiva pink Mouth exam: PRESENT: moist Neck exam: PRESENT: full ROM Cardiovascular exam: PRESENT: RRR Pulses: PRESENT: normal radial pulses Vascular exam: PRESENT: normal capillary refill GI/Abdominal exam: PRESENT: soft Rectal exam: PRESENT: deferred Extremities exam: PRESENT: full ROM Musculoskeletal exam: PRESENT: ambulatory Neurological exam: PRESENT: alert, oriented to person, oriented to place, oriented to time, oriented to situation Psychiatric exam: PRESENT: appropriate affect Results Laboratory Results: 05/19/19 20:48 05/20/19 02:20 05/19/19 05/19/19 05/19/19 20:48 20:48 20:48 WBC 12.3 H RBC 5.42 Hgb 16.2 Hct 48.4 MCV 89 MCH 29.9 MCHC 33.4 RDW 14.7 H Plt Count 269 Seg Neutrophils % 58.2 Sodium 135.1 L Potassium 4.4 Chloride 99 Carbon Dioxide 25 Anion Gap 11 BUN 12 Creatinine 0.84 Est GFR ( Amer) > 60 Glucose 264 H Calcium 9.0 TSH 1.08 05/20/19 02:20 WBC RBC Hgb Hct MCV MCH MCHC RDW Plt Count Seg Neutrophils % Sodium 134.1 L Potassium 4.0 Chloride 100 Carbon Dioxide 28 Anion Gap 6 BUN 11 Creatinine 0.78 Est GFR ( Amer) > 60 Glucose 240 H Calcium 8.6 TSH Assessment & Plan - Diagnosis (1) Cellulitis Qualifiers: Site of cellulitis: unspecified site Qualified Code(s): L03.90 - Cellulitis, unspecified Is this a current diagnosis for this admission?: Yes (2) Obstructive sleep apnea Is this a current diagnosis for this admission?: Yes (3) COPD (chronic obstructive pulmonary disease) Is this a current diagnosis for this admission?: Yes (4) Morbid obesity Is this a current diagnosis for this admission?: Yes (5) New onset type 2 diabetes mellitus Is this a current diagnosis for this admission?: Yes - Time Time Spent: 30 to 50 Minutes - Inpatient Certification Medical Necessity: Need for IV Antibiotics, Need for Surgery - Plan Summary Plan Summary: Will schedule I&D in 24-48 hrs Will keep NPO tonite
[2019-05-20] MEDS ORDERED: INSULIN LISPRO 100 UNIT/ML 3 ML VIAL SUBCUT SCH (08:00)
[2019-05-20] MEDS: DOCUSATE SODIUM 100 MG CAPSULE PO SCH ×2 (09:33→17:39)
[2019-05-20] MEDS: OXYCODONE-ACETAMINOPHEN 5-325 MG TABLET PO PRN ×3 (09:43→23:13)
[2019-05-20] MEDS ORDERED: INSULIN GLARGINE,HUM.REC.ANLOG 1,000 UNIT/10 ML VIAL SUBCUT SCH ×2 (10:00→22:00)
[2019-05-20] MEDS: INSULIN LISPRO 100 UNIT/ML 3 ML VIAL SUBCUT SCH ×3 (11:41→22:29)
[2019-05-20] MEDS: LINEZOLID 600 MG/300 ML RTUPB IV SCH (18:08)
[2019-05-21] MEDS: KETOROLAC TROMETHAMINE INJ/PF 30 MG/1 ML SDV IV PRN ×4 (00:59→22:30)
[2019-05-21] MEDS: ACETAMINOPHEN 325 MG TABLET PO PRN ×3 (04:32→22:30)
[2019-05-21 05:24] LABS: ABSOLUTE EOSINOPHILS # (AUTO) 0.2 10^3/uL (0.0-0.6); ABSOLUTE LYMPHOCYTES (AUTO) 3.5 10^3/uL (0.5-4.7); ABSOLUTE MONOCYTES (AUTO) 0.8 10^3/uL (0.1-1.4); BASOPHILS % (AUTO) 0.3 % (0-2); EOSINOPHILS % (AUTO) 1.7 % (0-6); HEMATOCRIT 40.2 % (37.9-51.0); LYMPHOCYTES % (AUTO) 33.5 % (13-45); MEAN CORPUSCULAR HEMOGLOBIN 30.1 pg (27.0-33.4); MEAN CORPUSCULAR HGB CONC 33.6 g/dL (32.0-36.0); MEAN CORPUSCULAR VOLUME 90 fl (80-97); MONOCYTES % (AUTO) 7.7 % (3-13); PLATELET COUNT 216 10^3/uL (150-450); RED BLOOD COUNT 4.48 10^6/uL (4.35-5.55); RED CELL DISTRIBUTION WIDTH 14.5 % (11.5-14.0); SEGMENTED NEUTROPHILS % (AUTO) 56.8 % (42-78); TOTAL CELLS COUNTED % (AUTO) 100 %; WHITE BLOOD COUNT 10.5 10^3/uL (4.0-10.5)
[2019-05-21 05:29] LABS: HEMOGLOBIN 13.5 g/dL (13.5-17.0)
[2019-05-21] MEDS: LINEZOLID 600 MG/300 ML RTUPB IV SCH ×2 (05:32→17:58)
[2019-05-21] MEDS: PIPERACILLIN SODIUM/TAZOBACTAM 4.5 GM in NORMAL SALINE 100 ML IV SCH ×3 (05:33→17:10)
[2019-05-21] MEDS: OXYCODONE-ACETAMINOPHEN 5-325 MG TABLET PO PRN ×3 (05:34→17:55)
[2019-05-21] MEDS: HEPARIN SOD (PORCINE) 5,000 UNIT/ML 1 ML VIAL SUBCUT SCH ×3 (05:35→22:26)
[2019-05-21] MEDS ORDERED: DEXTROSE 40% GEL 15 GM TUBE PO PRN ×2 (07:27)
[2019-05-21] MEDS ORDERED: GLUCAGON,HUMAN RECOMB 1 MG INJ IM PRN (07:27)
[2019-05-21] MEDS ORDERED: DEXTROSE 50%-WATER 25 GM/50 ML DISP.SYRIN IV PRN ×2 (07:27)
--- NOTE | 2019-05-21 08:17 | Progress Note ---
Provider Note Provider Note: upper back wound with 6 cm area of fluctulence will plan on i and d of upper back wound today risks and benifts discussed, incluiding need for additional surgery infection, mi, stroke, pneumonia, ventilator dependence pulm emboli and pt understands and agrees to proceed.
[2019-05-21] MEDS: INSULIN LISPRO 100 UNIT/ML 3 ML VIAL SUBCUT SCH ×8 (08:33→22:26)
[2019-05-21] MEDS: DOCUSATE SODIUM 100 MG CAPSULE PO SCH ×2 (09:04→17:17)
--- NOTE | 2019-05-21 09:24 | PDOC PROGRESS REPORT ---
Subjective Progress Note for:: 05/21/19 Subjective:: JC ORANTES is a 43 year old male with a past medical history of coronary artery disease with stent, diabetes without medication, morbid obesity, obstructive sleep apnea, oxygen dependent COPD and tobacco dependence. He presents with 5 days of pain in the posterior neck at the hairline. In the emergency room he is found to have cellulitis and 5 cm of edema of the subcutaneous fat without evidence of abscess. He started on vancomycin and referred to the hospitalist for admission. Patient is unaware of his average blood sugars he does not check. He denies recent antibiotic use. 05/21/2019. No acute events overnight, patient awake, wearing BiPAP, stating that his neck pain has not resolved, and now has early discharge, denies any fever, chills, nausea, vomiting, diarrhea, constipation or any urinary symptoms. Surgery following patient, plan is for I&D today. Reason For Visit: CELLULITIS Physical Exam Vital Signs: Temp Pulse Resp BP Pulse Ox 97.8 F 78 23 H 126/70 H 100 05/21/19 08:29 05/21/19 08:29 05/21/19 08:29 05/21/19 08:29 05/21/19 08:29 Intake & Output 05/20/19 05/21/19 05/22/19 06:59 06:59 06:59 Intake Total 1680 2340 Balance 1680 2340 Weight 178.7 kg General appearance: PRESENT: morbidly obese Head exam: PRESENT: atraumatic, normocephalic Neck exam: PRESENT: other - Fluctuant mass with purulent discharge posterior neck left of the midline,. ABSENT: carotid bruit, JVD, lymphadenopathy, thyromegaly Respiratory exam: PRESENT: clear to auscultation milagros. ABSENT: rales, rhonchi, wheezes Cardiovascular exam: PRESENT: RRR. ABSENT: diastolic murmur, rubs, systolic murmur GI/Abdominal exam: PRESENT: normal bowel sounds, soft. ABSENT: distended, g uarding, mass, organolmegaly, rebound, tenderness Neurological exam: PRESENT: alert, awake, oriented to person, oriented to place, oriented to time, oriented to situation, CN II-XII grossly intact. ABSENT: motor sensory deficit Results Laboratory Results: 05/21/19 04:27 05/20/19 02:20 05/21/19 04:27 WBC 10.5 RBC 4.48 Hgb 13.5 D Hct 40.2 MCV 90 MCH 30.1 MCHC 33.6 RDW 14.5 H Plt Count 216 Seg Neutrophils % 56.8 Assessment and Plan - Diagnosis (1) Cellulitis and abscess of neck Is this a current diagnosis for this admission?: Yes Plan: Fluctuant mass with purulent discharge posterior left neck surrounding erythema of about 5 x 5 cm, exquisitely tender to palpation. Day 2 IV antibiotics. Day 2 IV linezolid. Day 2 IV Zosyn. Surgery on board. I&D planned. Follow-up recommendation. Follow-up cultures. (2) Obstructive sleep apnea Is this a current diagnosis for this admission?: Yes Plan: BiPAP dependent. Continue BiPAP inpatient. Monitor vitals. Avoid medications reducing respiratory drive. (3) COPD (chronic obstructive pulmonary disease) Is this a current diagnosis for this admission?: Yes Plan: BiPAP dependent. SPO2 WNL. Continue duo nebs, ICS, LABA, LAMA, pulmonary toileting, flutter valve, incentive spirometry. Outpatient PCP and pulmonology follow-up. (4) Diabetes Qualifiers: Diabetes mellitus type: type 2 Diabetes mellitus mcc insulin use: without mcc use Diabetes mellitus complication status: with hyperglycemia Qualified Code(s): E11.65 - Type 2 diabetes mellitus with hyperglycemia Is this a current diagnosis for this admission?: Yes Plan: Uncontrolled. Hemoglobin A1c 12%. Diabetic diet, sliding scale insulin, long-acting insulin, pre-meal insulin, Accu-Chek, hypoglycemia protocol. Diabetic education. Outpatient PCP follow-up. (5) Morbid obesity Is this a current diagnosis for this admission?: Yes Plan: BMI 52.0. Would likely benefit from bariatric intervention. TSH WNL. Will obtain lipid panel. Diet and lifestyle modification recommended.
--- NOTE | 2019-05-21 09:43 | RADIOLOGY REPORT (SQ) ---
EXAM DESCRIPTION: CHEST SINGLE VIEW COMPLETED DATE/TIME: 05/21/2019 9:31 am REASON FOR STUDY: SURGICAL CLEARANCE COMPARISON: None. EXAM PARAMETERS: NUMBER OF VIEWS: One view. TECHNIQUE: Single frontal radiographic view of the chest acquired. RADIATION DOSE: NA LIMITATIONS: None. FINDINGS: LUNGS AND PLEURA: No opacities, masses or pneumothorax. No pleural effusion. MEDIASTINUM AND HILAR STRUCTURES: No masses. Contour normal. HEART AND VASCULAR STRUCTURES: Heart normal in size. Normal vasculature. BONES: No acute findings. HARDWARE: None in the chest. OTHER: No other significant finding. IMPRESSION: NO ACUTE RADIOGRAPHIC FINDING IN THE CHEST. TECHNICAL DOCUMENTATION: JOB ID: [id number] [employer]- All Rights Reserved Reading location - IP/workstation name: [email or web address]
[2019-05-21] MEDS ORDERED: METOCLOPRAMIDE HCL INJ/PF 10 MG/2 ML SDV ONE (09:48)
[2019-05-21] MEDS ORDERED: IPRATROPIUM/ALBUTEROL 0.5-2.5 MG/3 ML AMPUL NEB ONE (09:48)
[2019-05-21] MEDS ORDERED: FAMOTIDINE INJ/PF 20 MG/2 ML SDV IV ONE (09:51)
[2019-05-21 10:00] LABS: CHOLESTEROL 166.53 mg/dL (0-200); TRIGLYCERIDES 153 mg/dL (<150)
[2019-05-21] MEDS ORDERED: INSULIN GLARGINE,HUM.REC.ANLOG 1,000 UNIT/10 ML VIAL SUBCUT SCH ×2 (10:00→22:00)
[2019-05-21] MEDS ORDERED: MIDAZOLAM 2 MG/2 ML INJ ONE ×2 (10:06→10:07)
[2019-05-21] MEDS ORDERED: FENTANYL CITRATE INJ/PF 100 MCG/2 ML AMPUL ONE (10:06)
[2019-05-21] MEDS ORDERED: KETAMINE HCL INJ 500 MG/10 ML VIAL ONE (10:06)
[2019-05-21 10:10] LABS: DIRECT LDL 135 mg/dL (<100)
[2019-05-21] MEDS ORDERED: BUPIVACAINE HCL 0.5 % INJ/PF 30 ML SDV ONE (10:11)
[2019-05-21 10:14] LABS: VLDL CHOLESTEROL 30.6 mg/dL (10-31)
[2019-05-21] MEDS ORDERED: BUPIVACAINE HCL 0.5%-EPI 1:200000 INJ/PF 30 ML VIAL ONE (10:14)
[2019-05-21] MEDS ORDERED: DEXMEDETOMIDINE INJ 80 MCG/20 ML VIAL IV ONE (10:35)
[2019-05-21] MEDS ORDERED: PROMETHAZINE HCL INJ 25 MG/1 ML VIAL IV PRN ×2 (10:59)
[2019-05-21] MEDS ORDERED: DIPHENHYDRAMINE HCL 50 MG/ML VIAL IV PRN (10:59)
[2019-05-21] MEDS ORDERED: FENTANYL CITRATE INJ/PF 100 MCG/2 ML AMPUL IV PRN ×3 (10:59)
[2019-05-21] MEDS ORDERED: MEPERIDINE HCL/PF INJ 25 MG/1 ML DISP.SYRIN IV PRN (10:59)
--- NOTE | 2019-05-21 11:06 | Operative Report ---
Nonrecallable Operative Report DATE OF SURGERY: 05/21/19 PREOPERATIVE DIAGNOSIS: back abscess POSTOPERATIVE DIAGNOSIS: back abscess OPERATION: incision and drainage of back abscess SURGEON: MEGAN MCDONALD ANESTHESIA: Moderate Sedation COMPLICATIONS: none ESTIMATED BLOOD LOSS: 10cc INTRAOPERATIVE FINDINGS: see note PROCEDURE: Patient was brought to the operating room awake alert stable condition and on the transport gurney he was done in a sitting position he was given moderate sedation by anesthesia. The upper back posterior neck was prepped and draped in usual sterile fashion. After appropriate timeout site verification the area around the abscess cavity which was approximately 7 cm long by 3 cm wide was anesthetized with 0.5% bupivacaine with epi. Elliptical incision was made around the abscess in the upper midline back lower neck dissection was carried down through subcutaneous tissue with the 15 blade once we reached the deep subcutaneous tissue large amount of purulent material exuded from the wound which was sent off for culture and suctioned dry. We then continued our dissection down to the deep posterior subcutaneous tissue and fascia of the splenius capitis muscle with the 10 blade. The abscess cavity was opened widely the depth of the abscess cavity appeared to have granulation tissu e without further evidence of necrosis after dissection of all the necrotic tissue out with the 10 blade. Hemostasis was obtained with Bovie cautery the wound was then irrigated with normal saline suctioned dry was then packed with a Betadine soaked sponge which completed the procedure a sterile dressing was applied estimated blood loss was less than 10 cc sponge needle counts were correct x2 the patient was transferred back to recovery in stable condition
[2019-05-21] MEDS ORDERED: INSULIN GLARGINE,HUM.REC.ANLOG 1,000 UNIT/10 ML VIAL (PYX) SUBCUT ONE (22:21)
[2019-05-22] MEDS: PIPERACILLIN SODIUM/TAZOBACTAM 4.5 GM in NORMAL SALINE 100 ML IV SCH ×2 (00:25→05:13)
--- NOTE | 2019-05-22 00:48 | EKG REPORT ---
SEVERITY:- OTHERWISE NORMAL ECG - SINUS RHYTHM ATRIAL PREMATURE COMPLEX : Confirmed by: Zohreh Cid 22-May-2019 00:47:06
[2019-05-22] MEDS: HEPARIN SOD (PORCINE) 5,000 UNIT/ML 1 ML VIAL SUBCUT SCH ×3 (05:14→22:25)
[2019-05-22] MEDS: LINEZOLID 600 MG/300 ML RTUPB IV SCH ×2 (05:14→17:13)
[2019-05-22] MEDS: OXYCODONE-ACETAMINOPHEN 5-325 MG TABLET PO PRN ×3 (05:15→22:30)
[2019-05-22 05:22] LABS: ABSOLUTE EOSINOPHILS # (AUTO) 0.2 10^3/uL (0.0-0.6); ABSOLUTE LYMPHOCYTES (AUTO) 3.8 10^3/uL (0.5-4.7); ABSOLUTE MONOCYTES (AUTO) 0.6 10^3/uL (0.1-1.4); ABSOLUTE NEUT (AUTO) 3.6 10^3/uL (1.7-8.2); BASOPHILS % (AUTO) 0.4 % (0-2); EOSINOPHILS % (AUTO) 2.4 % (0-6); HEMATOCRIT 37.8 % (37.9-51.0); HEMOGLOBIN 12.7 g/dL (13.5-17.0); MEAN CORPUSCULAR HGB CONC 33.6 g/dL (32.0-36.0); MEAN CORPUSCULAR VOLUME 90 fl (80-97); MONOCYTES % (AUTO) 7.4 % (3-13); PLATELET COUNT 210 10^3/uL (150-450); RED BLOOD COUNT 4.23 10^6/uL (4.35-5.55); RED CELL DISTRIBUTION WIDTH 14.4 % (11.5-14.0); SEGMENTED NEUTROPHILS % (AUTO) 43.8 % (42-78); TOTAL CELLS COUNTED % (AUTO) 100 %; WHITE BLOOD COUNT 8.2 10^3/uL (4.0-10.5)
[2019-05-22 05:46] LABS: ALBUMIN 3.1 g/dL (3.5-5.0); ALKALINE PHOSPHATASE 116 U/L (38-126); ANION GAP 7 (5-19); ASPARTATE AMINO TRANSFERASE 66 U/L (17-59); BILIRUBIN,DIRECT 0.2 mg/dL (0.0-0.4); BILIRUBIN,TOTAL 0.4 mg/dL (0.2-1.3); BLOOD UREA NITROGEN 18 mg/dL (7-20); CALCIUM 9.2 mg/dL (8.4-10.2); CARBON DIOXIDE 28 mmol/L (22-30); CHLORIDE 99 mmol/L (98-107); GLUCOSE 359 mg/dL (75-110); POTASSIUM 4.8 mmol/L (3.6-5.0); TOTAL PROTEIN 6.2 g/dL (6.3-8.2)
[2019-05-22] MEDS: KETOROLAC TROMETHAMINE INJ/PF 30 MG/1 ML SDV IV PRN ×2 (09:04→17:12)
[2019-05-22] MEDS: INSULIN LISPRO 100 UNIT/ML 3 ML VIAL SUBCUT SCH ×7 (09:04→22:25)
[2019-05-22] MEDS: DOCUSATE SODIUM 100 MG CAPSULE PO SCH ×2 (09:19→17:13)
--- NOTE | 2019-05-22 10:12 | PDOC PROGRESS REPORT ---
Subjective Progress Note for:: 05/22/19 Reason For Visit: CELLULITIS Physical Exam Vital Signs: Temp Pulse Resp BP Pulse Ox 97.6 F 67 22 H 136/73 H 98 05/22/19 07:17 05/22/19 07:17 05/22/19 08:00 05/22/19 07:17 05/22/19 08:00 Intake & Output 05/21/19 05/22/19 05/23/19 06:59 06:59 06:59 Intake Total 2340 3083 400 Output Total 105 Balance 2340 2978 400 Weight 192.1 kg Results Laboratory Results: 05/22/19 04:52 05/22/19 04:52 05/21/19 05/22/19 05/22/19 04:27 04:52 04:52 WBC 8.2 RBC 4.23 L Hgb 12.7 L Hct 37.8 L MCV 90 MCH 30.0 MCHC 33.6 RDW 14.4 H Plt Count 210 Seg Neutrophils % 43.8 Sodium 134.3 L Potassium 4.8 Chloride 99 Carbon Dioxide 28 Anion Gap 7 BUN 18 Creatinine 1.06 Est GFR ( Amer) > 60 Glucose 359 H Calcium 9.2 Total Bilirubin 0.4 AST 66 H Alkaline Phosphatase 116 Total Protein 6.2 L Albumin 3.1 L Triglycerides 153 H Cholesterol 166.53 LDL Cholesterol Direct 135 H VLDL Cholesterol 30.6 HDL Cholesterol 31 L Impressions: Chest X-Ray 05/21/19 00:00 IMPRESSION: NO ACUTE RADIOGRAPHIC FINDING IN THE CHEST. Assessment & Plan - Diagnosis (1) Neck abscess Is this a current diagnosis for this admission?: Yes - Plan Summary Plan Summary: This is a 43-year-old male status post incision and drainage of a posterior neck abscess. The wound appears clean today. There is no necrotic tissue or active purulence. I have recommended damp to dry dressing changes twice daily. From a surgical standpoint, the patient is fit for discharge. Continue antibiotics. Surgery will sign off at this time. Please renotify with any questions or concerns.
--- NOTE | 2019-05-22 10:22 | PDOC PROGRESS REPORT ---
Subjective Progress Note for:: 05/22/19 Subjective:: JC ORANTES is a 43 year old male with a past medical history of coronary artery disease with stent, diabetes without medication, morbid obesity, obstructive sleep apnea, oxygen dependent COPD and tobacco dependence. He presents with 5 days of pain in the posterior neck at the hairline. In the emergency room he is found to have cellulitis and 5 cm of edema of the subcutaneous fat without evidence of abscess. He started on vancomycin and referred to the hospitalist for admission. Patient is unaware of his average blood sugars he does not check. He denies recent antibiotic use. 05/21/2019. No acute events overnight, patient awake, wearing BiPAP, stating that his neck pain has not resolved, and now has early discharge, denies any fever, chills, nausea, vomiting, diarrhea, constipation or any urinary symptoms. Surgery following patient, plan is for I&D today. 05/22/2019. No acute events overnight, patient still complaining of significant pain in his posterior neck, he is status post I&D by surgery, surgery has signed off, cultures are growing gram-positive cocci's, denies any fever, chills, nausea, vomiting, diarrhea, constipation or any urinary symptoms. Reason For Visit: CELLULITIS Physical Exam Vital Signs: Temp Pulse Resp BP Pulse Ox 97.6 F 67 22 H 136/73 H 98 05/22/19 07:17 05/22/19 07:17 05/22/19 08:00 05/22/19 07:17 05/22/19 08:00 Intake & Output 05/21/19 05/22/19 05/23/19 06:59 06:59 06:59 Intake Total 2340 3083 400 Output Total 105 Balance 2340 2978 400 Weight 192.1 kg General appearance: PRESENT: morbidly obese Head exam: PRESENT: atraumatic, normocephalic Neck exam: PRESENT: other - Posterior neck abscess status post I&D, wound looks clean, packing intact, no active discharge.. ABSENT: carotid bruit, JVD, l ymphadenopathy, thyromegaly Respiratory exam: PRESENT: clear to auscultation milagros. ABSENT: rales, rhonchi, wheezes Cardiovascular exam: PRESENT: RRR. ABSENT: diastolic murmur, rubs, systolic murmur GI/Abdominal exam: PRESENT: normal bowel sounds, soft. ABSENT: distended, guarding, mass, organolmegaly, rebound, tenderness Neurological exam: PRESENT: alert, awake, oriented to person, oriented to place, oriented to time, oriented to situation, CN II-XII grossly intact. ABSENT: motor sensory deficit Results Laboratory Results: 05/22/19 04:52 05/22/19 04:52 05/22/19 05/22/19 04:52 04:52 WBC 8.2 RBC 4.23 L Hgb 12.7 L Hct 37.8 L MCV 90 MCH 30.0 MCHC 33.6 RDW 14.4 H Plt Count 210 Seg Neutrophils % 43.8 Sodium 134.3 L Potassium 4.8 Chloride 99 Carbon Dioxide 28 Anion Gap 7 BUN 18 Creatinine 1.06 Est GFR ( Amer) > 60 Glucose 359 H Calcium 9.2 Total Bilirubin 0.4 AST 66 H Alkaline Phosphatase 116 Total Protein 6.2 L Albumin 3.1 L Impressions: Chest X-Ray 05/21/19 00:00 IMPRESSION: NO ACUTE RADIOGRAPHIC FINDING IN THE CHEST. Assessment and Plan - Diagnosis (1) Cellulitis and abscess of neck Is this a current diagnosis for this admission?: Yes Plan: Day 2 status post I&D by surgery. Fluctuant mass with purulent discharge posterior left neck surrounding erythema of about 5 x 5 cm, exquisitely tender to palpation on admission. Wound culture growing gram-positive cocci, pending sensitivity. Day 3 antibiotics. Day 3 IV linezolid. Received 2 days of IV Zosyn. Continue antibiotics, follow-up culture, supportive measures, wound care, outpatient PCP and surgery follow-up. (2) Obstructive sleep apnea Is this a current diagnosis for this admission?: Yes Plan: BiPAP dependent. Continue BiPAP inpatient. Monitor vitals. Avoid medications reducing respiratory drive. (3) COPD (chronic obstructive pulmonary disease) Is this a current diagnosis for this admission?: Yes Plan: BiPAP dependent. SPO2 WNL. Continue duo nebs, ICS, LABA, LAMA, pulmonary toileting, flutter valve, incentive spirometry. Outpatient PCP and pulmonology follow-up. 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 Hemoglobin A1c 12%. BGL insulin 300s. Increase Lantus to 60 units nightly, lispro 15 before meals, sliding scale lispro. Adjust dosage as needed. Continue diabetic diet, sliding scale insulin, long-acting insulin, pre-meal insulin, Accu-Chek, hypoglycemia protocol. Diabetic education. Outpatient PCP follow-up. (5) Morbid obesity Is this a current diagnosis for this admission?: Yes Plan: BMI 52.0. Would likely benefit from bariatric intervention. TSH WNL. Abnormal lipid panel. Diet and lifestyle modification recommended. (6) Hyperlipidemia Is this a current diagnosis for this admission?: Yes Plan: ASCVD score of 14.1.% High intensity statins. Follow-up with PCP with LFT evaluation. Diet and lifestyle modification recommended.
[2019-05-22] MEDS: INSULIN GLARGINE,HUM.REC.ANLOG 1,000 UNIT/10 ML VIAL SUBCUT SCH (22:27)
[2019-05-22] MEDS: ATORVASTATIN CALCIUM 40 MG TABLET PO SCH (22:29)
[2019-05-22] MEDS: ACETAMINOPHEN 325 MG TABLET PO PRN (22:30)
[2019-05-23 03:37] LABS: ABSOLUTE BASOPHILS # (AUTO) 0.1 10^3/uL (0.0-0.2); ABSOLUTE EOSINOPHILS # (AUTO) 0.2 10^3/uL (0.0-0.6); ABSOLUTE LYMPHOCYTES (AUTO) 3.5 10^3/uL (0.5-4.7); ABSOLUTE MONOCYTES (AUTO) 0.4 10^3/uL (0.1-1.4); ABSOLUTE NEUT (AUTO) 3.3 10^3/uL (1.7-8.2); BASOPHILS % (AUTO) 0.9 % (0-2); EOSINOPHILS % (AUTO) 3.2 % (0-6); HEMATOCRIT 39.9 % (37.9-51.0); HEMOGLOBIN 13.6 g/dL (13.5-17.0); LYMPHOCYTES % (AUTO) 46.8 % (13-45); MEAN CORPUSCULAR HEMOGLOBIN 30.6 pg (27.0-33.4); MEAN CORPUSCULAR HGB CONC 34.1 g/dL (32.0-36.0); MEAN CORPUSCULAR VOLUME 90 fl (80-97); MONOCYTES % (AUTO) 5.5 % (3-13); PLATELET COUNT 215 10^3/uL (150-450); RED BLOOD COUNT 4.44 10^6/uL (4.35-5.55); RED CELL DISTRIBUTION WIDTH 14.5 % (11.5-14.0); SEGMENTED NEUTROPHILS % (AUTO) 43.6 % (42-78); TOTAL CELLS COUNTED % (AUTO) 100 %; WHITE BLOOD COUNT 7.5 10^3/uL (4.0-10.5)
[2019-05-23 03:50] LABS: ALBUMIN 3.3 g/dL (3.5-5.0); ALKALINE PHOSPHATASE 124 U/L (38-126); ANION GAP 7 (5-19); ASPARTATE AMINO TRANSFERASE 70 U/L (17-59); BILIRUBIN,DIRECT 0.2 mg/dL (0.0-0.4); BILIRUBIN,TOTAL 0.2 mg/dL (0.2-1.3); BLOOD UREA NITROGEN 18 mg/dL (7-20); CALCIUM 9.7 mg/dL (8.4-10.2); CARBON DIOXIDE 28 mmol/L (22-30); CHLORIDE 100 mmol/L (98-107); GLUCOSE 335 mg/dL (75-110); TOTAL PROTEIN 6.6 g/dL (6.3-8.2)
[2019-05-23] MEDS: KETOROLAC TROMETHAMINE INJ/PF 30 MG/1 ML SDV IV PRN ×2 (04:30→12:24)
[2019-05-23] MEDS: HEPARIN SOD (PORCINE) 5,000 UNIT/ML 1 ML VIAL SUBCUT SCH ×3 (05:30→21:42)
[2019-05-23] MEDS: LINEZOLID 600 MG/300 ML RTUPB IV SCH ×2 (05:34→17:29)
[2019-05-23] MEDS: INSULIN LISPRO 100 UNIT/ML 3 ML VIAL SUBCUT SCH ×7 (09:02→21:42)
[2019-05-23] MEDS: DOCUSATE SODIUM 100 MG CAPSULE PO SCH ×2 (09:03→17:23)
[2019-05-23] MEDS: OXYCODONE-ACETAMINOPHEN 5-325 MG TABLET PO PRN ×2 (10:23→23:38)
--- NOTE | 2019-05-23 10:48 | PDOC PROGRESS REPORT ---
Subjective Progress Note for:: 05/23/19 Subjective:: 43 year old male with a past medical history of coronary artery disease with stent, diabetes without medication, morbid obesity, obstructive sleep apnea, oxygen dependent COPD and tobacco dependence. He presents with 5 days of pain in the posterior neck at the hairline. In the emergency room he is found to have cellulitis and 5 cm of edema of the subcutaneous fat without evidence of abscess. He started on vancomycin and referred to the hospitalist for admissio n. Patient is unaware of his average blood sugars he does not check. He denies recent antibiotic use. 05/21/2019. No acute events overnight, patient awake, wearing BiPAP, stating that his neck pain has not resolved, and now has early discharge, denies any fever, chills, nausea, vomiting, diarrhea, constipation or any urinary symptoms. Surgery following patient, plan is for I&D today. 05/22/2019. No acute events overnight, patient still complaining of significant pain in his posterior neck, he is status post I&D by surgery, surgery has signed off, cultures are growing gram-positive cocci's, denies any fever, chills, nausea, vomiting, diarrhea, constipation or any urinary symptoms. 05/23/2019-no acute events in the last 24 hours. Afebrile. Hemoglobin A1c is 12.5. WBC count is 7.5. Cultures came back positive for gram-positive cocci in clusters. Patient is expressing desire to go home but convince him to stay at least another day for further management. Reason For Visit: CELLULITIS Physical Exam Vital Signs: Temp Pulse Resp BP Pulse Ox 97.5 F 55 L 23 H 120/65 100 05/23/19 07:34 05/23/19 07:34 05/23/19 07:34 05/23/19 07:34 05/23/19 07:34 Intake & Output 05/22/19 05/23/19 05/24/19 06:59 06:59 06:59 Intake Total 3083 2536 300 Output Total 105 Balance 2978 2536 300 Weight 192.1 kg 189.6 kg General appearance: PRESENT: no acute distress, morbidly obese Head exam: PRESENT: atraumatic Eye exam: PRESENT: PERRLA Mouth exam: PRESENT: moist, tongue midline Teeth exam: PRESENT: poor dentation Neck exam: PRESENT: other - Dressing present over the incision and drainage place.. ABSENT: carotid bruit, JVD, lymphadenopathy, thyromegaly Respiratory exam: PRESENT: decreased breath sounds Cardiovascular exam: PRESENT: RRR. ABSENT: diastolic murmur, rubs, systolic murmur GI/Abdominal exam: PRESENT: normal bowel sounds, soft. ABSENT: distended, guarding, mass, organolmegaly, rebound, tenderness Rectal exam: PRESENT: deferred Neurological exam: PRESENT: alert, awake, oriented to person, oriented to place, oriented to time, oriented to situation, CN II-XII grossly intact. ABSENT: motor sensory deficit Psychiatric exam: PRESENT: appropriate affect, normal mood. ABSENT: homicidal ideation, suicidal ideation Results Laboratory Results: 05/23/19 02:53 05/23/19 02:53 05/23/19 05/23/19 02:53 02:53 WBC 7.5 RBC 4.44 Hgb 13.6 Hct 39.9 MCV 90 MCH 30.6 MCHC 34.1 RDW 14.5 H Plt Count 215 Seg Neutrophils % 43.6 Sodium 134.9 L Potassium 5.0 Chloride 100 Carbon Dioxide 28 Anion Gap 7 BUN 18 Creatinine 0.94 Est GFR ( Amer) > 60 Glucose 335 H Calcium 9.7 Total Bilirubin 0.2 AST 70 H Alkaline Phosphatase 124 Total Protein 6.6 Albumin 3.3 L 05/21/19 10:27 Back - Abscess Gram Stain - Final Impressions: Chest X-Ray 05/21/19 00:00 IMPRESSION: NO ACUTE RADIOGRAPHIC FINDING IN THE CHEST. Assessment and Plan - Diagnosis (1) Cellulitis and abscess of neck Is this a current diagnosis for this admission?: Yes Plan: Day 2 status post I&D by surgery. Fluctuant mass with purulent discharge posterior left neck surrounding erythema of about 5 x 5 cm, exquisitely tender to palpation on admission. Wound culture growing gram-positive cocci, pending sensitivity. Day 3 antibiotics. Day 3 IV linezolid. Received 2 days of IV Zosyn. Continue antibiotics, follow-up culture, supportive measures, wound care, outpatient PCP and surgery follow-up. -day 3 status post incision and drainage by surgery. Cultures came back positive for gram-positive cocci in clusters. Presently on IV linezolid (2) Obstructive sleep apnea Is this a current diagnosis for this admission?: Yes Plan: BiPAP dependent. Continue BiPAP inpatient. Monitor vitals. Avoid medications reducing respiratory drive. 05/23/2019-patient is morbidly obese BMI is more than 55. Patient has obstructive sleep apnea most likely secondary to morbid obesity is BiPAP dependent. Plan is to continue the present management during the hospital stay. (3) COPD (chronic obstructive pulmonary disease) Is this a current diagnosis for this admission?: Yes Plan: BiPAP dependent. SPO2 WNL. Continue duo nebs, ICS, LABA, LAMA, pulmonary toileting, flutter valve, incentive spirometry. Outpatient PCP and pulmonology follow-up. 05/23/2019-patient has history of COPD BiPAP dependent. Plan is to continue the present management including incentive spirometry, flutter wall, pulmonary toileting long-acting beta agonists. (4) Diabetes Qualifiers: Diabetes mellitus type: type 2 Diabetes mellitus long-term insulin use: without long-term use Diabetes mellitus complication status: with hyperglycemia Qualified Code(s): E11.65 - Type 2 diabetes mellitus with hyperglycemia Is this a current diagnosis for this admission?: Yes Plan: Uncontrolled. Hemoglobin A1c 12%. BGL insulin 300s. Increase Lantus to 60 units nightly, lispro 15 before meals, sliding scale lispro. Adjust dosage as needed. Continue diabetic diet, sliding scale insulin, long-acting insulin, pre-meal insulin, Accu-Chek, hypoglycemia protocol. Diabetic education. Outpatient PCP follow-up. 05/23/2019-patient's hemoglobin A1c is 12.5 blood sugar this morning is 335. Presently on insulin sliding scale before meals and at bedtime Lantus 60 units at bedtime and Humalog insulin 15 units AC. Plan is to increase the Humalog to 20 units AC. Diet exercise weight loss lifestyle modifications discussed with the patient dietary consult is requested. (5) Hyperlipidemia Is this a current diagnosis for this admission?: Yes Plan: ASCVD score of 14.1.% High intensity statins. Follow-up with PCP with LFT evaluation. Diet and lifestyle modification recommended. 05/23/2019-patient's elevated LFTs most likely secondary to fatty liver. - Time Time Spent with patient: 25-34 minutes Medications reviewed and adjusted accordingly: Yes Anticipated discharge: Home
[2019-05-23] MEDS: ACETAMINOPHEN 325 MG TABLET PO PRN (15:22)
[2019-05-23] MEDS: INSULIN GLARGINE,HUM.REC.ANLOG 1,000 UNIT/10 ML VIAL SUBCUT SCH (21:41)
[2019-05-23] MEDS: ATORVASTATIN CALCIUM 40 MG TABLET PO SCH (21:42)
[2019-05-24] MEDS: KETOROLAC TROMETHAMINE INJ/PF 30 MG/1 ML SDV IV PRN (03:22)
[2019-05-24] MEDS: HEPARIN SOD (PORCINE) 5,000 UNIT/ML 1 ML VIAL SUBCUT SCH (05:11)
[2019-05-24] MEDS: LINEZOLID 600 MG/300 ML RTUPB IV SCH (06:18)
[2019-05-24 06:51] LABS: ABSOLUTE EOSINOPHILS # (AUTO) 0.3 10^3/uL (0.0-0.6); ABSOLUTE LYMPHOCYTES (AUTO) 3.6 10^3/uL (0.5-4.7); ABSOLUTE MONOCYTES (AUTO) 0.4 10^3/uL (0.1-1.4); ABSOLUTE NEUT (AUTO) 2.7 10^3/uL (1.7-8.2); BASOPHILS % (AUTO) 0.5 % (0-2); EOSINOPHILS % (AUTO) 3.8 % (0-6); HEMATOCRIT 38.3 % (37.9-51.0); LYMPHOCYTES % (AUTO) 51.3 % (13-45); MEAN CORPUSCULAR HGB CONC 33.8 g/dL (32.0-36.0); MEAN CORPUSCULAR VOLUME 89 fl (80-97); MONOCYTES % (AUTO) 6.2 % (3-13); PLATELET COUNT 204 10^3/uL (150-450); RED BLOOD COUNT 4.31 10^6/uL (4.35-5.55); RED CELL DISTRIBUTION WIDTH 14.2 % (11.5-14.0); SEGMENTED NEUTROPHILS % (AUTO) 38.2 % (42-78); TOTAL CELLS COUNTED % (AUTO) 100 %
[2019-05-24 07:04] LABS: ALBUMIN 3.1 g/dL (3.5-5.0); ALKALINE PHOSPHATASE 105 U/L (38-126); ANION GAP 11 (5-19); ASPARTATE AMINO TRANSFERASE 54 U/L (17-59); BILIRUBIN,DIRECT 0.2 mg/dL (0.0-0.4); BILIRUBIN,TOTAL 0.3 mg/dL (0.2-1.3); BLOOD UREA NITROGEN 18 mg/dL (7-20); CALCIUM 9.3 mg/dL (8.4-10.2); CARBON DIOXIDE 25 mmol/L (22-30); CHLORIDE 100 mmol/L (98-107); GLUCOSE 320 mg/dL (75-110); POTASSIUM 4.6 mmol/L (3.6-5.0); TOTAL PROTEIN 6.2 g/dL (6.3-8.2)
[2019-05-24] MEDS ORDERED: INFLUENZA QUAD (6MOS+) 2019-20 VAC 0.5 ML SYR IM ONE (08:00)
[2019-05-24] MEDS: OXYCODONE-ACETAMINOPHEN 5-325 MG TABLET PO PRN (09:37)
[2019-05-24] MEDS: INSULIN LISPRO 100 UNIT/ML 3 ML VIAL SUBCUT SCH ×2 (09:42→09:43)
[2019-05-24] MEDS: DOCUSATE SODIUM 100 MG CAPSULE PO SCH (09:44)
--- NOTE | 2019-05-24 11:28 | PDOC DISCHARGE SUMMARY ---
Impression - Admit/DC Date/PCP Admission Date/Primary Care Provider: 05/20/19 02:07 LEVON ENCISO MD Discharge Date: 05/24/19 - Discharge Diagnosis (1) Cellulitis and abscess of neck Is this a current diagnosis for this admission?: Yes (2) Obstructive sleep apnea Is this a current diagnosis for this admission?: Yes (3) COPD (chronic obstructive pulmonary disease) Is this a current diagnosis for this admission?: Yes (4) Diabetes Is this a current diagnosis for this admission?: Yes (5) Hyperlipidemia Is this a current diagnosis for this admission?: Yes - Assessment Summary: (1) Cellulitis and abscess of neck Is this a current diagnosis for this admission?: Yes Plan: Day 2 status post I&D by surgery. Fluctuant mass with purulent discharge posterior left neck surrounding erythema of about 5 x 5 cm, exquisitely tender to palpation on admission. Wound culture growing gram-positive cocci, pending sensitivity. Day 3 antibiotics. Day 3 IV linezolid. Received 2 days of IV Zosyn. Continue antibiotics, follow-up culture, supportive measures, wound care, outpatient PCP and surgery follow-up. -day 3 status post incision and drainage by surgery. Cultures came back positive for gram-positive cocci in clusters. Presently on IV linezolid 05/24/2019-wound cultures came back positive for staph aureus to discharge him home on levo floxacillin 500 mg p.o. daily. (2) Obstructive sleep apnea Is this a current diagnosis for this admission?: Yes Plan: BiPAP dependent. Continue BiPAP inpatient. Monitor vitals. Avoid medications reducing respiratory drive. 05/23/2019-patient is morbidly obese BMI is more than 55. Patient has obstructive sleep apnea most likely secondary to morbid obesity is BiPAP dependent. Plan is to continue the present management during the hospital stay. 05/24/2019-patient has morbid obesity with BMI of more than 55. Patient has oxygen at home. Patient is advised to follow-up with primary care physician make arrangements for sleep studies. (3) COPD (chronic obstructive pulmonary disease) Is this a current diagnosis for this admission?: Yes Plan: BiPAP dependent. SPO2 WNL. Continue duo nebs, ICS, LABA, LAMA, pulmonary toileting, flutter valve, incentive spirometry. Outpatient PCP and pulmonology follow-up. 05/23/2019-patient has history of COPD BiPAP dependent. Plan is to continue the present management including incentive spirometry, flutter wall, pulmonary toileting long-acting beta agonists. 08/24/2018-patient has history of COPD on BiPAP he has home oxygen advised him to continue the same treatment. 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 Hemoglobin A1c 12%. BGL insulin 300s. Increase Lantus to 60 units nightly, lispro 15 before meals, sliding scale lispro. Adjust dosage as needed. Continue diabetic diet, sliding scale insulin, long-acting insulin, pre-meal insulin, Accu-Chek, hypoglycemia protocol. Diabetic education. Outpatient PCP follow-up. 05/23/2019-patient's hemoglobin A1c is 12.5 blood sugar this morning is 335. Presently on insulin sliding scale before meals and at bedtime Lantus 60 units at bedtime and Humalog insulin 15 units AC. Plan is to increase the Humalog to 20 units AC. Diet exercise weight loss lifestyle modifications discussed with the patient dietary consult is requested. 09/2018-patient hemoglobin A1c is 12.5, latest blood sugars are 60. I tried to send him home on Lantus and Humalog sliding scale but patient insurance does not cover the medications apparently and he cannot afford the medications. Plan is to discharge him home on metformin thousand milligrams p.o. twice daily and glipizide 10 mg p.o. twice daily. Advised to continue insulin sliding scale at home. Strongly advised (5) Hyperlipidemia Is this a current diagnosis for this admission?: Yes Plan: ASCVD score of 14.1.% High intensity statins. Follow-up with PCP with LFT evaluation. Diet and lifestyle modification recommended. 05/23/2019-patient's elevated LFTs most likely secondary to fatty liver. - Additional Information Resuscitation Status: Full Code Discharge Diet: Diabetic Discharge Activity: Activity As Tolerated Referrals: MEGAN MCDONALD MD [ACTIVE STAFF] - 05/31/19 9:45 am LEVON ENCISO MD [Primary Care Provider] - 06/01/19 10:30 am ([phone]) Prescriptions: Insulin Lispro [Humalog Insulin (Lispro) 100 unit/mL] 20 unit SUBCUT AC 30 Days #2 vial Insulin Glargine,Hum.rec.anlog [Lantus Insulin 100 Unit/1 ml 10 ml] 60 unit SUBCUT QHS 30 Days #2 vial Levofloxacin [Levaquin 500 mg Tablet] 500 mg PO DAILY #10 tablet Home Medications: Atorvastatin Calcium [Lipitor 40 mg Tablet] 40 mg PO QHS tablet 05/24/19 Insulin Glargine,Hum.rec.anlog [Lantus Insulin 100 Unit/1 ml 10 ml] 60 unit SUBCUT QHS 30 Days #2 vial 05/24/19 Insulin Lispro [Humalog Insulin (Lispro) 100 unit/mL] 0 - 12 unit SUBCUT ACHS unit 05/24/19 Insulin Lispro [Humalog Insulin (Lispro) 100 unit/mL] 20 unit SUBCUT AC 30 Days #2 vial 05/24/19 Levofloxacin [Levaquin 500 mg Tablet] 500 mg PO DAILY #10 tablet 05/24/19 Oxycodone HCl/Acetaminophen [Percocet 5-325 mg Tablet] 1 tab PO Q6HP PRN #10 tablet 05/24/19 History of Present Illiness History of Present Illness: JC ORANTES is a 43 year old male Physical Exam Vital Signs: Temp Pulse Resp BP Pulse Ox 97.3 F 54 L 18 126/70 H 100 05/24/19 10:25 05/24/19 10:25 05/24/19 10:25 05/24/19 10:25 05/24/19 10:25 Intake & Output 05/23/19 05/24/19 05/25/19 06:59 06:59 06:59 Intake Total 2536 1665 300 Balance 2536 1665 300 Weight 189.6 kg 190.2 kg General appearance: PRESENT: no acute distress, morbidly obese Head exam: PRESENT: atraumatic Eye exam: PRESENT: PERRLA Mouth exam: PRESENT: moist, tongue midline Teeth exam: PRESENT: poor dentation Respiratory exam: PRESENT: accessory muscle use, decreased breath sounds Cardiovascular exam: PRESENT: RRR. ABSENT: diastolic murmur, rubs, systolic murmur GI/Abdominal exam: PRESENT: normal bowel sounds, soft. ABSENT: distended, guarding, mass, organolmegaly, rebound, tenderness Rectal exam: PRESENT: deferred Extremities exam: PRESENT: full ROM. ABSENT: calf tenderness, clubbing, pedal edema Neurological exam: PRESENT: alert, awake, oriented to person, oriented to place, oriented to time, oriented to situation, CN II-XII grossly intact. ABSENT: motor sensory deficit Psychiatric exam: PRESENT: appropriate affect, normal mood. ABSENT: homicidal ideation, suicidal ideation Skin exam: PRESENT: other - Came in with abscess on the back of the neck status post incision incision and drainage dressing is present. Results Laboratory Results: WBC 7.0 10^3/uL (4.0-10.5) 05/24/19 05:55 RBC 4.31 10^6/uL (4.35-5.55) L 05/24/19 05:55 Hgb 13.0 g/dL (13.5-17.0) L 05/24/19 05:55 Hct 38.3 % (37.9-51.0) 05/24/19 05:55 MCV 89 fl (80-97) 05/24/19 05:55 MCH 30.0 pg (27.0-33.4) 05/24/19 05:55 MCHC 33.8 g/dL (32.0-36.0) 05/24/19 05:55 RDW 14.2 % (11.5-14.0) H 05/24/19 05:55 Plt Count 204 10^3/uL (150-450) 05/24/19 05:55 Lymph % (Auto) 51.3 % (13-45) H 05/24/19 05:55 [place] % (Auto) 6.2 % (3-13) 05/24/19 05:55 Eos % (Auto) 3.8 % (0-6) 05/24/19 05:55 Baso % (Auto) 0.5 % (0-2) 05/24/19 05:55 Absolute Neuts (auto) 2.7 10^3/uL (1.7-8.2) 05/24/19 05:55 Absolute Lymphs (auto) 3.6 10^3/uL (0.5-4.7) 05/24/19 05:55 Absolute Monos (auto) 0.4 10^3/uL (0.1-1.4) 05/24/19 05:55 Absolute Eos (auto) 0.3 10^3/uL (0.0-0.6) 05/24/19 05:55 Absolute Basos (auto) 0.0 10^3/uL (0.0-0.2) 05/24/19 05:55 Seg Neutrophils % 38.2 % (42-78) L 05/24/19 05:55 Sodium 135.6 mmol/L (137-145) L 05/24/19 05:55 Potassium 4.6 mmol/L (3.6-5.0) 05/24/19 05:55 Chloride 100 mmol/L (98-107) 05/24/19 05:55 Carbon Dioxide 25 mmol/L (22-30) 05/24/19 05:55 Anion Gap 11 (5-19) 05/24/19 05:55 BUN 18 mg/dL (7-20) 05/24/19 05:55 Creatinine 0.89 mg/dL (0.52-1.25) 05/24/19 05:55 Est GFR ( Amer) > 60 (>60) 05/24/19 05:55 Est GFR (MDRD) Non-Af > 60 (>60) 05/24/19 05:55 Glucose 320 mg/dL (75-110) H 05/24/19 05:55 POC Glucose 360 mg/dL (70-110) H 05/24/19 07:35 Hemoglobin A1c % 12.5 % (4.7-6.0) H 05/20/19 05:38 Calcium 9.3 mg/dL (8.4-10.2) 05/24/19 05:55 Total Bilirubin 0.3 mg/dL (0.2-1.3) 05/24/19 05:55 Direct Bilirubin 0.2 mg/dL (0.0-0.4) 05/24/19 05:55 Neonat Total Bilirubin Not Reportable 05/24/19 05:55 Neonat Direct Bilirubin Not Reportable 05/24/19 05:55 Neonat Indirect Bili Not Reportable 05/24/19 05:55 AST 54 U/L (17-59) 05/24/19 05:55 ALT 66 U/L (<50) 05/24/19 05:55 Alkaline Phosphatase 105 U/L (38-126) 05/24/19 05:55 Total Protein 6.2 g/dL (6.3-8.2) L 05/24/19 05:55 Albumin 3.1 g/dL (3.5-5.0) L 05/24/19 05:55 Triglycerides 153 mg/dL (<150) H 05/21/19 04:27 Cholesterol 166.53 mg/dL (0-200) 05/21/19 04:27 LDL Cholesterol Direct 135 mg/dL (<100) H 05/21/19 04:27 VLDL Cholesterol 30.6 mg/dL (10-31) 05/21/19 04:27 HDL Cholesterol 31 mg/dL (>40) L 05/21/19 04:27 TSH 1.08 uIU/mL (0.47-4.68) 05/19/19 20:48 Impressions: Chest X-Ray 05/21/19 00:00 IMPRESSION: NO ACUTE RADIOGRAPHIC FINDING IN THE CHEST. Stroke Is this a Stroke Patient?: No Acute Heart Failure - Is this a Heart Failure Patient?: No
[2019-05-24 12:11] VITALS: BP 130/63
== END 2019-05-24 12:31 | disposition home or self-care (01) | DRG 603 ==
LOC: ER 18:55 → EH 05-20 02:07 → 5 05-20 03:36
PROVIDERS: ADMIT Internal Medicine; ATTEND Internal Medicine
PROC: 5A09557 Assistance with Respiratory Ventilation, Greater than 96 Consecutive Hours, Continuous Positive Airway Pressure (ICD-10-PCS; 2019-05-20)
PROC: 0J950ZX Drainage of Left Neck Subcutaneous Tissue and Fascia, Open Approach, Diagnostic (ICD-10-PCS; principal; 2019-05-21 10:30)
DX: L02.11 Cutaneous abscess of neck (principal); Z68.43 Body mass index [BMI] 50.0-59.9, adult; L03.221 Cellulitis of neck; E66.01 Morbid (severe) obesity due to excess calories; G47.33 Obstructive sleep apnea (adult) (pediatric); J44.9 Chronic obstructive pulmonary disease, unspecified; E78.5 Hyperlipidemia, unspecified; E11.65 Type 2 diabetes mellitus with hyperglycemia; F17.210 Nicotine dependence, cigarettes, uncomplicated; I25.10 Atherosclerotic heart disease of native coronary artery without angina pectoris; I25.2 Old myocardial infarction; Z95.5 Presence of coronary angioplasty implant and graft; Z79.1 Long term (current) use of non-steroidal anti-inflammatories (NSAID); Z79.82 Long term (current) use of aspirin; Z79.4 Long term (current) use of insulin; Z79.899 Other long term (current) drug therapy; Z91.018 Allergy to other foods; Z99.81 Dependence on supplemental oxygen; Z83.3 Family history of diabetes mellitus; Z82.49 Family history of ischemic heart disease and other diseases of the circulatory system
CPT/HCPCS: 300; 36415; 70491; 71045; 80048; 80053; 80061; 82962; 83036; 84443; 85025; 87070; 87075; 87077; 87186; 87205; 90686; 93005; 93010; 94660; 96361; 96374; 99284; A6266; J1170; J1644; J1815; J1885; J2020; J2250; J2543; J2765; J3010; J3490; J7030; J7050; J7620; S0028